=== PATIENT | female | born 1965 | race Caucasian/White ===

== ENCOUNTER → 2017-01-10 | Outpatient (CLI) | payer OTHER ==
--- NOTE | 2017-01-10 15:47 | US ---
EXAMINATION TYPE: US venous doppler duplex UE LT DATE OF EXAM: 01/10/2017 3:38 PM COMPARISON: NONE CLINICAL HISTORY: M79.602 PAIN IN LEFT ARM. Lt arm pain, no known previous DVT SIDE PERFORMED: Left Left Arm: Negative for DVT Deep venous structures demonstrate normal compressibility and augmentation of flow within the left up per extremity. No filling defects identified. IMPRESSION: No evidence for DVT left upper extremity.
== END | disposition home or self-care (01) ==
LOC: RADUSWWP 15:19
PROVIDERS: ATTEND Family Medicine
DX: M79.602 Pain in left arm (principal)

== ENCOUNTER → 2017-06-13 | Outpatient (CLI) | payer OTHER ==
--- NOTE | 2017-06-14 09:43 | MM ---
Reason for exam: screening (asymptomatic). Last mammogram was performed 1 year ago. History: Patient is postmenopausal. Benign left US cyst aspiration ea add of the left breast, December 29, 2007. Benign left US cyst aspiration of the left breast, December 29, 2007. Benign left US cyst aspiration ea add of the left breast, May 06, 2006. Benign left US cyst aspiration of the left breast, May 06, 2006. Benign US left CoreBiopsy of the left breast, May 06, 2006. Took hormonal contraceptives for 1 year beginning at age 21. Physical Findings: A clinical breast exam by your physician is recommended on an annual basis and results should be correlated with mammographic findings. MG Screening Mammo w CAD Bilateral CC and MLO view(s) were taken. Prior study comparison: June 07, 2016, bilateral MG 3d screening mammo w/cad. April 21, 2015, bilateral MG diagnostic mammo w CAD YANET. The breast tissue is heterogeneously dense. This may lower the sensitivity of mammography. Finding: There are typically benign diffuse/scattered and grouped calcifications in both breasts, greater in the left breast. Previous mammotome biopsy in the left breast. There is no discrete abnormality. ASSESSMENT: Benign, BI-RAD 2 RECOMMENDATION: Routine screening mammogram of both breasts in 1 year.
== END | disposition home or self-care (01) ==
LOC: RADMAMWWP 08:38
PROVIDERS: ATTEND Family Medicine
DX: Z12.31 Encounter for screening mammogram for malignant neoplasm of breast (principal)

== ENCOUNTER → 2018-07-03 | Outpatient (CLI) | payer BC ==
--- NOTE | 2018-07-03 14:06 | MM ---
Reason for exam: screening (asymptomatic). Last mammogram was performed 1 year and 1 month ago. History: Patient is postmenopausal. Benign left US cyst aspiration ea add of the left breast, December 29, 2007. Benign left US cyst aspiration of the left breast, December 29, 2007. Benign left US cyst aspiration ea add of the left breast, May 06, 2006. Benign left US cyst aspiration of the left breast, May 06, 2006. Benign US left CoreBiopsy of the left breast, May 06, 2006. Took hormonal contraceptives for 1 year beginning at age 21. Physical Findings: A clinical breast exam by your physician is recommended on an annual basis and results should be correlated with mammographic findings. MG 3D Screening Mammo W/Cad Bilateral CC and MLO view(s) were taken. Prior study comparison: June 13, 2017, bilateral MG screening mammo w CAD. June 07, 2016, bilateral MG 3d screening mammo w/cad. The breast tissue is heterogeneously dense. This may lower the sensitivity of mammography. Stable benign calcifications. There is no discrete abnormality. No significant changes when compared with prior studies. ASSESSMENT: Benign, BI-RAD 2 RECOMMENDATION: Routine screening mammogram of both breasts in 1 year.
== END | disposition home or self-care (01) ==
LOC: RADMAMWWP 07:11
PROVIDERS: ATTEND Family Medicine
DX: Z12.31 Encounter for screening mammogram for malignant neoplasm of breast (principal)
CPT/HCPCS: 77063; 77067

== ENCOUNTER 2019-06-22 08:42 | Day surgery (SDC) | payer BC ==
[2019-06-21 10:43] VITALS: BMI 41.6
[~2019-06-22 08:42] MED LIST: LIDOCAINE 1% 20 ML VIAL (10MG/ML) FOR IV START INTRADERMA PRN
[2019-06-22 09:18] VITALS: TEMP 98.2
[2019-06-22] MEDS: LACTATED RINGERS 1,000 ML IV SCH ×2 (09:18→09:45)
[2019-06-22 09:25] LABS: Glucose,Whole Blood 170 mg/dL (75-99)
[2019-06-22] MEDS ORDERED: PROPOFOL 10 MG/ML 20 ML VIAL IV ONE (09:46)
--- NOTE | 2019-06-22 10:06 | P.PCN ---
Date of Procedure: 06/22/19 Procedure(s) Performed: BRIEF HISTORY: Patient is a 54-year-old pleasant white female scheduled for an elective colonoscopy as a part of screening for colorectal neoplasia. She does have family history of colon cancer diagnosed in her older sister at this age 55. Her last coloscopy was 5 years ago. PROCEDURE PERFORMED: Colonoscopy with biopsy. PREOPERATIVE DIAGNOSIS: Screening for colon cancer/family history of colon cancer. IV sedation per Anesthesia. PROCEDURE: After informed consent was obtained, the patient, was brought into the endoscopy unit. IV sedation was administered by Anesthesia under continuous monitoring. Digital rectal examination was normal. Initially the Olympus CF-160 flexible video colonoscope was then inserted in the rectum, gradually advanced into the cecum without any difficulty. Careful examination was performed as the scope was gradually being withdrawn. Ileocecal valve and the appendiceal orifice were visualized and appeared normal. Prep was excellent. Mucosa of the cecum, appeared normal. In the ascending colon there was a 2-3 mm sessile polyp that was removed by cold biopsy. Rest of the ascending colon, transverse colon, descending colon, sigmoid colon, and rectum appeared normal. Retroflexion was performed in the rectum and no lesions were seen. The patient tolerated the procedure well. IMPRESSION: 2-3 mm sessile ascending colon polyp status post removal by cold biopsy Rest of the colon appeared normal RECOMMENDATIONS: Findings of this examination were discussed with the patient as well as a family. She was advised to follow with the biopsy results and have a repeat screening colonoscopy in 5 years from now.
[2019-06-22 10:34] VITALS: PULSE 72; RESP 16
[2019-06-22 10:58] VITALS: BP 125/67
== END 2019-06-22 10:55 | disposition home or self-care (01) ==
LOC: ORWHC2ENDO 08:42
PROVIDERS: ATTEND Internal Medicine Gastroenterology
DX: Z12.11 Encounter for screening for malignant neoplasm of colon (principal); Z80.0 Family history of malignant neoplasm of digestive organs; D12.2 Benign neoplasm of ascending colon; Z88.2 Allergy status to sulfonamides; Z88.6 Allergy status to analgesic agent; Z91.041 Radiographic dye allergy status; G47.33 Obstructive sleep apnea (adult) (pediatric); Z87.891 Personal history of nicotine dependence; E11.9 Type 2 diabetes mellitus without complications; N20.0 Calculus of kidney; Z79.890 Hormone replacement therapy; Z79.4 Long term (current) use of insulin; Z79.899 Other long term (current) drug therapy
CPT/HCPCS: 88305; 45380; J2704

== ENCOUNTER → 2019-06-26 | Outpatient (CLI) | payer BC ==
--- NOTE | 2019-06-27 14:54 | US ---
EXAMINATION TYPE: US kidneys/renal and bladder DATE OF EXAM: 06/26/2019 COMPARISON: NONE CLINICAL HISTORY: N20.0 calculus of kidney. HX of renal stones. EXAM MEASUREMENTS: Right Kidney: 11.3 x 4.3 x 4.0 cm Left Kidney: 10.7 x 4.8 x 4.4 cm Right Kidney: Multiple echogenic foci seen Left Kidney: Large stone visualized 1.4 cm lower pole. Bladder: wnl Bilateral Jets seen: Yes There is no evidence for hydronephrosis at this point in time. No masses are identified. The urinary bladder is anechoic. Bilateral ureteral jets are seen as reported by the technologist. IMPRESSION: Possible bilateral nephrolithiasis, sizable calcification left kidney is nonobstructive.
== END | disposition home or self-care (01) ==
LOC: RADUSWWP 16:12
PROVIDERS: ATTEND Family Medicine
DX: N20.0 Calculus of kidney (principal); N28.89 Other specified disorders of kidney and ureter
CPT/HCPCS: 76770

== ENCOUNTER → 2019-07-23 | Outpatient (CLI) | payer BC | END | disposition home or self-care (01) | LOC: LABWHC1 08:47 | PROVIDERS: ATTEND Urology | DX: N20.0 Calculus of kidney (principal) | CPT/HCPCS: 82140; 82340; 82507; 82570; 83735; 83945; 83986; 84105; 84133; 84300; 84392; 84560 ==

== ENCOUNTER → 2019-08-09 | Outpatient (CLI) | payer BC ==
--- NOTE | 2019-08-10 11:38 | MM ---
Reason for exam: screening (asymptomatic). Last mammogram was performed 1 year and 1 month ago. History: Patient is postmenopausal. Benign left US cyst aspiration ea add of the left breast, December 29, 2007. Benign left US cyst aspiration of the left breast, December 29, 2007. Benign left US cyst aspiration ea add of the left breast, May 06, 2006. Benign left US cyst aspiration of the left breast, May 06, 2006. Benign US left CoreBiopsy of the left breast, May 06, 2006. Took hormonal contraceptives for 1 year beginning at age 21. Physical Findings: A clinical breast exam by your physician is recommended on an annual basis and results should be correlated with mammographic findings. MG 3D Screening Mammo W/Cad Bilateral CC and MLO view(s) were taken. Prior study comparison: July 03, 2018, bilateral MG 3d screening mammo w/cad. June 13, 2017, bilateral MG screening mammo w CAD. The breast tissue is heterogeneously dense. This may lower the sensitivity of mammography. Finding #1: Architectural distortion in the middle position of the left breast. Finding #2: There are typically benign round, regional calcifications in both breasts. Previous mammotome biopsy in the left breast. ASSESSMENT: Incomplete: need additional imaging evaluation, BI-RAD 0 RECOMMENDATION: Ultrasound of the left breast. [facility] will attempt to contact patient to return for ultrasound.
== END | disposition home or self-care (01) ==
LOC: RADMAMWWP 16:32
PROVIDERS: ATTEND Family Medicine
DX: Z12.31 Encounter for screening mammogram for malignant neoplasm of breast (principal)
CPT/HCPCS: 77063; 77067

== ENCOUNTER → 2019-08-27 | Outpatient (CLI) | payer BC ==
--- NOTE | 2019-08-27 11:52 | USB ---
Reason for exam: additional evaluation requested from abnormal screening. History: Patient is postmenopausal. Benign left US cyst aspiration ea add of the left breast, December 29, 2007. Benign left US cyst aspiration of the left breast, December 29, 2007. Benign left US cyst aspiration ea add of the left breast, May 06, 2006. Benign left US cyst aspiration of the left breast, May 06, 2006. Benign US left CoreBiopsy of the left breast, May 06, 2006. Took hormonal contraceptives for 1 year beginning at age 21. Physical Findings: Nurse did not find any significant physical abnormalities on exam. US Breast LT Left complete breast ultrasound includes all four quadrants, the retroareolar region and axilla. Finding demonstrates a 0.9 x 0.6 x 0.5cm oval, cystic cluster at 12 o'clock, a 0.9 x 0.7 x 0.2cm oval, cystic duct versus cluster at 2 o'clock, a 0.7 x 1.4 x 0.3cm oval, cystic lesion at 2 o'clock, a 0.5 x 0.6 x 0.3cm oval, cystic lesion at 3 o'clock, a 0.4 x 0.5 x 0.2cm oval, cystic lesion at 8 o'clock, a 1.0 x 0.4 x 0.5cm oval, mixed, possibly intraductal lesion at 10 o'clock, biopsy recommended, a 0.6 x 0.9 x 0.4cm complex, cystic lesion at 10 o'clock and multiple lymph nodes at the axilla with the largest measuring 1.5 x 3.7 x 1.9cm. These results were verbally communicated with the patient and result sheet given to the patient on 08/27/19. ASSESSMENT: Suspicious, BI-RAD 4 RECOMMENDATION: Ultrasound core biopsy of the left breast. (10 o'clock) Called Dr. Quintana' office with mammographic findings and has scheduled an appointment for the patient for 10/05/18 at 9:[address] Casas. Biopsy scheduled for 10/08/18 at 12:20. PRELIMINARY REPORT CALLED AND FAXED TO DR. CASAS ON 08/27/19.
== END | disposition home or self-care (01) ==
LOC: RADUSWWP 10:12
PROVIDERS: ATTEND Family Medicine
DX: R92.8 Other abnormal and inconclusive findings on diagnostic imaging of breast (principal)

== ENCOUNTER → 2019-10-05 | Outpatient (CLI) | payer BC ==
[2019-10-05 07:55] VITALS: BP 142/83; PULSE 82; RESP 16; TEMP 98.2
--- NOTE | 2019-10-05 08:18 | P.GSHP ---
History of Present Illness H&P Date: 10/05/19 Chief Complaint: abnormal ultrasound of the left breast Yumiko is a 53-year-old white female who presents for breast evaluation and consultation from Dr. Quintana secondary to ultrasound abnormality in the left breast. [place] [id number]. This revealed no lesions of concern in the right breast. In the left breast #1 architectural distortion in the middle position #2 some calcifications in both breasts which were felt to be benign the recommendation was for ultrasound of the left breast. This was performed on [id number]. This revealed multiple cystic areas as well as a lesion at 10:00 which was a possible intraductal lesion 1 x 0.5 cm in size. Additionally she was noted to have multiple lymph nodes in the axilla. Recommendation was for an ultrasound-guided core biopsy of the lesion in the left breast at the 10 o'clock position. Yusuf ko a left bresat biopsy ultrasound core 2006 benign The patient does not feel any new lumps masses or nodules in her breast. She is not complaining of any pain in her breast at this time. She is not complaining of any nipple discharge or skin changes. She has no history of any trauma or infection of the breast. Caffeine: none smoke: none chocolate: weekly hormones: none Family History: mother: lung sister: colon brother: testicular cancer, pancreatic cancer Hormonal History: menarche: 12 , first born at 20, breast fed: no menopause: hysterectomy at 28 did not take ovaries, gets hot flashes now done for bleeding BCP: 1 year hormones: none Surgery: appendectomy hysterectomy gallbladder Achilles tendon eye surgery (muscle tightness) kidney stone (lithotripsy) breast biopsy heart cath Medical History: HTN diabetic anxiety high cholesterol hyperlipidemia sleep apnea Social History: smoke: none, stopped 30 years ago alcohol: occasional drugs: none - Constitutional Constitutional: Reports sweats - EENT Eyes: denies blurred vision, denies pain Ears: deny: decreased hearing, tinnitus Ears, nose, mouth and throat: Reports headache, Denies sore throat - Breasts Breasts: bilateral: as per HPI - Cardiovascular Cardiovascular: Reports high blood pressure - Respiratory Comment: sleep apnea Respiratory: Denies cough, Denies 7 - Gastrointestinal Gastrointestinal: Denies abdominal pain, Denies diarrhea, Denies nausea, Denies vomiting - Genitourinary (Female) Comment: MRSA in urine felt to be secondary to kidney stones Genitourinary: Reports hematuria, Reports kidney stones - Menstruation Menstruation: Reports post hysterectomy - Musculoskeletal Comment: arthritis Musculoskeletal: Reports myalgias - Integumentary Integumentary: Denies pruritus, Denies rash - Neurological Neurological: Denies numbness, Denies weakness - Psychiatric Psychiatric: Reports anxiety - Endocrine Endocrine: Reports fatigue - Hematologic/Lymphatic Comment: none - Allergic/Immunologic Allergic/Immunologic: Reports seasonal allergies Past Medical History Past Medical History: Diabetes Mellitus, Hyperlipidemia, Hypertension, Sleep Apnea/CPAP/BIPAP, Thyroid Disorder Additional Past Medical History / Comment(s): hx. kidney stones; uses CPAP; History of Any Multi-Drug Resistant Organisms: MRSA Date of last positivie culture/infection: April 2019 MDRO Source:: urine Past Surgical History: Appendectomy, Cholecystectomy, Heart Catheterization, Hysterectomy, Orthopedic Surgery Additional Past Surgical History / Comment(s): colonoscopies; laparoscopy; achilles tendon surg; right eye muscle surgery 2010; Past Anesthesia/Blood Transfusion Reactions: No Reported Reaction Past Psychological History: Anxiety Smoking Status: Former smoker Past Alcohol Use History: Occasional Additional Past Alcohol Use History / Comment(s): quit smoking 1989, smoked for 10 yrs. <ppd Past Drug Use History: None Reported - Past Family History Sister(s) Family Medical History: Cancer Additional Family Medical History / Comment(s): colon cancer; mitral valve prolapse Mother Family Medical History: Cancer Additional Family Medical History / Comment(s): lung cancer; kidney failure; stroke Father Family Medical History: Diabetes Mellitus, Myocardial Infarction (ND) Medications and Allergies Home Medications Medication Instructions Recorded Confirmed Type Bumetanide [Bumex] 0.5 mg PO QAM 06/21/19 10/05/19 History Cetirizine HCl [Zyrtec] 10 mg PO QAM 06/21/19 10/05/19 History DULoxetine HCL [Cymbalta] 60 mg PO QAM 06/21/19 10/05/19 History Ezetimibe [Zetia] 10 mg PO HS 06/21/19 10/05/19 History INSULIN ASPART (NovoLOG) [NovoLOG 10 unit SQ AC-BRKFST 06/21/19 10/05/19 History (formulary)] INSULIN ASPART (NovoLOG) [NovoLOG 14 unit SQ AC-LUNCH 06/21/19 10/05/19 History (formulary)] INSULIN ASPART (NovoLOG) [NovoLOG 14 unit SQ AC-SUPPER 06/21/19 10/05/19 History (formulary)] Insulin Glargine [Lantus] 44 unit SQ DAILY 06/21/19 10/05/19 History Levothyroxine Sodium [Synthroid] 100 mcg PO QAM 06/21/19 10/05/19 History Losartan [Cozaar] 75 mg PO QAM 06/21/19 10/05/19 History Pravastatin Sodium [Pravachol] 40 mg PO HS 06/21/19 10/05/19 History metFORMIN HCL [Glucophage] 1,000 mg PO BID 06/21/19 10/05/19 History sitaGLIPtin [Januvia] 100 mg PO QAM 06/21/19 10/05/19 History Dulaglutide [Trulicity] 1.5 mg SQ WEEKLY 09/24/19 10/05/19 History Insulin Glargine [Lantus] 48 unit SQ HS 09/24/19 10/05/19 History Potassium Citrate [Potassium 10 meq PO QAM 09/24/19 10/05/19 History Citrate ER] Allergies Allergy/AdvReac Type Severity Reaction Status Date / Time Iodinated Contrast Media Allergy Rash/Hives Verified 10/05/19 07:38 Sulfa (Sulfonamide Allergy Rash/Hives Verified 10/05/19 07:38 Antibiotics) sulfamethoxazole Allergy Rash/Hives Verified 10/05/19 07:38 [From Bactrim] trimethoprim [From Bactrim] Allergy Rash/Hives Verified 10/05/19 07:38 naproxen [From Aleve] AdvReac itchy Verified 10/05/19 07:38 swollen hands Surgical - Exam Vital Signs Temp Pulse Resp BP Pulse Ox 98.2 F 82 16 142/83 96 10/05/19 07:42 10/05/19 07:42 10/05/19 07:42 10/05/19 07:42 10/05/19 07:42 BMI 40.7 - General obese - Eyes normal ocular movement - ENT normal pinna, normal nares, no hearing loss - Neck no bruits, trachea midline, no lymphadectomy - Respiratory normal expansion, normal respiratory effort, clear to percussion, clear to auscultation - Cardiovascular Rhythm: regular Heart Sounds: normal: S1, S2 - Abdomen Abdomen: soft, non tender, bowel sounds, no guarding, no rigid, no rebound - Integumentary normal turgor - Neurologic no disoriented, no combative - Musculoskeletal normal gait, normal posture - Psychiatric oriented to time, oriented to person, oriented to place, speech is normal, memory intact breast exam: BRA 40D ptosis grade 3 Inspection: No evidence of any nipple retraction, no skin changes of concern Palpation: Right breast: Multi-positional exam no dominant masses or nodules of concern, fibrocystic changes Right axilla: No adenopathy of concern Left breast: Multi-positional exam no dominant masses or nodules of concern, fibrocystic changes Left axilla: No adenopathy of concern Results mammogram and ultrasound results reviewed Assessment and Plan Assessment: Impression: HTN diabetic anxiety high cholesterol hyperlipidemia sleep apnea BMI 40.7/ obesity Fibrocystic breast changes Ultrasound abnormality left breast Adenopathy on ultrasound not palpable or clinically worrisome in left axilla Patient most likely perimenopausal Plan: 1. Ultrasound-guided core biopsy left breast 2. Causes of fibrocystic breast disease discussed 3. Medical management of medical conditions 4. FSH and LH levels to be drawn to determine menopausal status CC: Dr. Quintana Encounter 25 minutes, > 50% of time in planning and counselling Time with Patient: Less than 30
[2019-10-05 16:32] LABS: Follicle Stimulating Hormone 17.8 mIU/mL; Luteinizing Hormone 7.3 mIU/mL
== END ==
LOC: WWCWWP 07:15
PROVIDERS: ATTEND Surgery
DX: N95.9 Unspecified menopausal and perimenopausal disorder (principal)
CPT/HCPCS: 83001; 83002

== ENCOUNTER → 2019-10-08 | Day surgery (SDC) | payer BC ==
[2019-10-08 11:50] VITALS: RESP 12; TEMP 98.6
[2019-10-08 12:43] VITALS: BP 146/79; PULSE 86
--- NOTE | 2019-10-08 12:54 | USB ---
EXAMINATION TYPE: US biopsy breast VAD LT, MG diagnostic mammo LT wo CAD DATE OF EXAM: 10/08/2019 CLINICAL HISTORY: R92.8, Abnormal mammogram. TECHNIQUE: Ultrasound guided core biopsy of left breast. COMPARISON: Left breast ultrasound dated 08/27/2019 FINDINGS: The procedure of ultrasound guided core biopsy was explained to the patient. Benefits, alternatives, and risks were discussed. An informed consent was then obtained. Preprocedural timeout was performed. The patient was placed in supine positioning for imaging and for the procedure. The overlying skin was prepped and draped in usual sterile fashion. 10 cc of 1% lidocaine was used as anesthetic into the skin and subcutaneous tissue up to a 1.1 cm mass at the 10:00 position in the left breast. Under ultrasound guidance, a 12-gauge vacuum assisted biopsy gun device was used to obtain 4 core samples. Following this, a coil-shaped biopsy marker was left at the site of biopsy. Postprocedure mammogram demonstrates appropriate biopsy marker placement. The patient tolerated the procedure well without any immediate complication. The patient was kept in the radiology department for short stay after the procedure and then discharged home in stable condition. IMPRESSION: Successful, uncomplicated ultrasound guided core biopsy of a 1.1 cm mass at the 10:00 position in the left breast, full pathology results to follow. Pathology Results: Benign LEFT BREAST, ULTRASOUND GUIDED CORE BIOPSY: Focal { } and remote fat necrosis with mild chronic inflammation (see comment). Recommendation Follow up mammogram of the left breast in 6 months. SHREYASD
== END ==
LOC: RADUSWWP 11:15
PROVIDERS: ATTEND Surgery
DX: N60.32 Fibrosclerosis of left breast (principal); N64.1 Fat necrosis of breast; N61.0 Mastitis without abscess
CPT/HCPCS: 88305; 77065; 19083; A4648; J2001

== ENCOUNTER → 2019-10-19 | Outpatient (CLI) | payer BC | END | disposition home or self-care (01) | LOC: LABPAT 14:30 | PROVIDERS: ATTEND Surgery | DX: Z01.818 Encounter for other preprocedural examination (principal) | CPT/HCPCS: 93005 ==

== ENCOUNTER → 2019-10-23 | Day surgery (SDC) | payer BC ==
[2019-10-19 11:43] VITALS: BMI 40.7
[~2019-10-23] MED LIST changes: +ALPRAZolam 0.5 MG TAB PO ONE; +DEXAMETHASONE SOD PHOSPHATE 10 MG/ML 1 ML VIAL IV ONE; +HEPARIN SODIUM,PORCINE 5,000 UNIT/ML 1 ML VIAL SQ ONE; +HYDROmorphone 0.5 MG/0.5 ML SYRINGE IVP PRN; +KETOROLAC 30 MG/ML 1 ML VIAL ONE; +LACTATED RINGERS 1,000 ML IV ONE; +LACTATED RINGERS 1,000 ML IV SCH; +LIDOCAINE 1% 20 ML VIAL (10MG/ML) FOR IV START INTRADERMA ONE; -LIDOCAINE 1% 20 ML VIAL (10MG/ML) FOR IV START INTRADERMA PRN; +LIDOCAINE 1% INJ 10MG/ML (20 ML MDV) ONE; +LIDOCAINE 1% INJ 10MG/ML (20 ML MDV) SQ ONE; +METOPROLOL TARTRATE 5 MG/5 ML VIAL IVP ONE; +MIDAZOLAM 2 MG/2 ML VIAL IV PRN; +MIDAZOLAM 2 MG/2 ML VIAL ONE; +ONDANSETRON 4 MG/2 ML VIAL IVP ONE; +PROPOFOL 10 MG/ML 20 ML VIAL IV ONE; +Pre Op ABX Message 1 EACH MISC MISCELLANE ONE; +SCOPOLAMINE 1.5MG/72HR PATCH TRANSDERM ONE; +SUCCINYLCHOLINE CHLORIDE 100 MG/5 ML SYR IV ONE; +fentaNYL (PF) 50 MCG/ML 2 ML AMP ONE
--- NOTE | 2019-10-23 16:54 | P.OP ---
Date of Procedure: 10/23/19 Preoperative Diagnosis: discordant core Biopsy left breast Postoperative Diagnosis: same Procedure(s) Performed: needle localization excisional biopsy via crescent mastopexy left breast Anesthesia: local Surgeon: Mary Casas Estimated Blood Loss (ml): 10 IV fluids (ml): 400 Pathology: other (breast tissue) Condition: stable Disposition: same day Indications for Procedure: core biopsy discordant Operative Findings: fibrofatty breast tissue Description of Procedure: Yumiko is a 54-year-old white female status post core biopsy of an area of concern in the left breast. Pathology was discordant and it was felt that a needle local excisional biopsy of the area of concern should be performed. The patient was brought to the operating room following needle localization of area of concern in the left breast. The patient was seen in the preoperative area where skin markings were performed. This was felt it could be approached via a crescent mastopexy incision. The superior aspect of the incision was 2 cm above the superior area at 12:00. The markings were placed. The patient was brought to the operating room. Following induction of general anesthesia the left breast was prepped and draped in a sterile fashion. The skin was de- epithelialized in the area of the markings. The area of the breast was entered and the dissection was performed to the shaft of the needle. The needle was grasped using an Allis clamp and surrounding tissue was excised. Following this the specimen was painted for orientation. Radiograph the specimen revealed the area of concern had been removed. The wound was well irrigated. Titanium clips were placed to ayden the cavity. The breast tissue was closed in the deep area of the cavity using 3-0 Vicryl suture. This was done after we were assured that hemostasis was attained using electrocautery, the Harmonic scalpel, and oversewing several vessels. The skin was closed using 3-0 Vicryl suture in the subcutaneous tissue. The subcuticular tissue was closed using 4-0 Monocryl. The patient tolerated the procedure in stable condition. All instrument and sponge counts were correct at the end of the case.
--- NOTE | 2019-10-23 16:56 | P.DS ---
Providers Attending physician: Mary Casas Primary care physician: Dylan Quintana Plan - Discharge Summary Discharge Rx Participant: No New Discharge Prescriptions: No Action INSULIN ASPART (NovoLOG) [NovoLOG (formulary)] 10 unit SQ AC-BRKFST INSULIN ASPART (NovoLOG) [NovoLOG (formulary)] 14 unit SQ AC-LUNCH sitaGLIPtin [Januvia] 100 mg PO QAM metFORMIN HCL [Glucophage] 1,000 mg PO BID Pravastatin Sodium [Pravachol] 40 mg PO HS Losartan [Cozaar] 75 mg PO QAM Levothyroxine Sodium [Synthroid] 100 mcg PO QAM Insulin Glargine [Lantus] 44 unit SQ DAILY Ezetimibe [Zetia] 10 mg PO HS DULoxetine HCL [Cymbalta] 60 mg PO QAM Cetirizine HCl [Zyrtec] 10 mg PO QAM Bumetanide [Bumex] 0.5 mg PO QAM INSULIN ASPART (NovoLOG) [NovoLOG (formulary)] 14 unit SQ AC-SUPPER Dulaglutide [Trulicity] 1.5 mg SQ WEEKLY Potassium Citrate [Potassium Citrate ER] 10 meq PO QAM Insulin Glargine [Lantus] 48 unit SQ HS Ibuprofen 400 mg PO DAILY PRN PRN Reason: Pain Discharge Medication List Bumetanide [Bumex] 0.5 mg PO QAM 06/21/19 [History] Cetirizine HCl [Zyrtec] 10 mg PO QAM 06/21/19 [History] DULoxetine HCL [Cymbalta] 60 mg PO QAM 06/21/19 [History] Ezetimibe [Zetia] 10 mg PO HS 06/21/19 [History] INSULIN ASPART (NovoLOG) [NovoLOG (formulary)] 10 unit SQ AC-BRKFST 06/21/19 [History] INSULIN ASPART (NovoLOG) [NovoLOG (formulary)] 14 unit SQ AC-LUNCH 06/21/19 [History] INSULIN ASPART (NovoLOG) [NovoLOG (formulary)] 14 unit SQ AC-SUPPER 06/21/19 [History] Insulin Glargine [Lantus] 44 unit SQ DAILY 06/21/19 [History] Levothyroxine Sodium [Synthroid] 100 mcg PO QAM 06/21/19 [History] Losartan [Cozaar] 75 mg PO QAM 06/21/19 [History] Pravastatin Sodium [Pravachol] 40 mg PO HS 06/21/19 [History] metFORMIN HCL [Glucophage] 1,000 mg PO BID 06/21/19 [History] sitaGLIPtin [Januvia] 100 mg PO QAM 06/21/19 [History] Dulaglutide [Trulicity] 1.5 mg SQ WEEKLY 09/24/19 [History] Insulin Glargine [Lantus] 48 unit SQ HS 09/24/19 [History] Potassium Citrate [Potassium Citrate ER] 10 meq PO QAM 09/24/19 [History] Ibuprofen 400 mg PO DAILY PRN 10/19/19 [History] Follow up Appointment(s)/Referral(s): Mary Casas MD [STAFF PHYSICIAN] - 1 Week Activity/Diet/Wound Care/Special Instructions: do not drive for 24 hours after discharge wear bra at all times unless showering may shower after 48 hours Discharge Disposition: HOME SELF-CARE
--- NOTE | 2019-10-23 17:01 | MM ---
EXAMINATION TYPE: MG pre op needle loc LT, MG surgical specimen LT DATE OF EXAM: 10/23/2019 COMPARISON: 10/08/2019, 08/27/2019, 08/09/2019 CLINICAL HISTORY: 52-year-old female status post ultrasound guided left breast biopsy with discordant results, possible intraductal lesion for which the patient is being referred for needle localization. TECHNIQUE: Needle localization with wire placement and surgical excision of area of concern in the 9:00 left breast. FINDINGS: The procedure of needle localization with wire placement and than surgical excision was explained to the patient. Benefits, alternatives, and risks were discussed. An informed consent was then obtained. The shortest pathway for procedure was chosen. Shortest pathway was a medial approach. The overlying skin was prepped and draped in usual sterile fashion. Lidocaine was used as anesthetic into the skin and subcutaneous tissue up to the level of area of concern. A 7 cm needle was used. It was placed via a medial approach under mammographic guidance. Subsequent 90 degrees mammogram show the needle to be in satisfactory position relative to the targeted area. At this point, wire was placed and the needle was withdrawn. The wire was fixed to patient's skin. Images were marked for surgeon. The patient tolerated the procedure well without any immediate complication. The patient was kept in the radiology department for short stay after the procedure and then taken to surgery for surgical excision. Targeted clip and wire are identified in specimen mammogram. The patient was kept in hospital for short stay after the procedure and then discharged home in stable condition. IMPRESSION: Successful, uncomplicated needle localization with wire placement and surgical excision of previous site of ultrasound-guided biopsy in the 9:00 left breast demonstrating discordant results given suspicion of an intraductal lesion. Full pathology results to follow. Pathology Results: High Risk LEFT BREAST, NEEDLE LOCALIZATION EXCISION: Extensive lobular neoplasia (ALH/LCIS). Background fibrocystic changes including focal radial scar and columnar cell change. Ruptured duct with adjacent fat necrosis and scar. See note. Recommendation Surgical consult of the left breast. Continued surgical management/surviellence for radial scar, ALH/LCIS. MTDD
[2019-10-23 17:21] VITALS: TEMP 98
[2019-10-23 17:24] LABS: Glucose,Whole Blood 172 mg/dL (75-99)
[2019-10-23 18:29] VITALS: BP 122/75; PULSE 85; RESP 16
[2019-10-24 11:45] LABS: Glucose,Whole Blood 158 mg/dL (75-99)
== END | disposition home or self-care (01) ==
LOC: OR 11:23
PROVIDERS: ATTEND Surgery
DX: C50.912 Malignant neoplasm of unspecified site of left female breast (principal); I10 Essential (primary) hypertension; E11.9 Type 2 diabetes mellitus without complications; E66.01 Morbid (severe) obesity due to excess calories; F41.9 Anxiety disorder, unspecified; F32.9 Major depressive disorder, single episode, unspecified; G47.33 Obstructive sleep apnea (adult) (pediatric); E07.9 Disorder of thyroid, unspecified; E78.5 Hyperlipidemia, unspecified; Z86.14 Personal history of Methicillin resistant Staphylococcus aureus infection; Z79.4 Long term (current) use of insulin; Z79.890 Hormone replacement therapy; Z79.899 Other long term (current) drug therapy; Z88.5 Allergy status to narcotic agent; Z91.013 Allergy to seafood; Z88.1 Allergy status to other antibiotic agents; Z88.2 Allergy status to sulfonamides; Z88.8 Allergy status to other drugs, medicaments and biological substances; Z88.6 Allergy status to analgesic agent; Z91.041 Radiographic dye allergy status; Z68.41 Body mass index [BMI] 40.0-44.9, adult; Z86.711 Personal history of pulmonary embolism
CPT/HCPCS: 88342; 88307; 76098; 19281; 19125; J2250; J1644; J1100; J2405; J2001; J3010; J1885; J0330; J2704

== ENCOUNTER → 2020-01-07 | Outpatient (CLI) | payer BC | END | disposition home or self-care (01) | LOC: RADMRIMAIN 07:55 | PROVIDERS: ATTEND Internal Medicine Hematology & Oncology | DX: Z53.9 Procedure and treatment not carried out, unspecified reason (principal) ==

== ENCOUNTER → 2020-02-29 | Outpatient (CLI) | payer BC ==
[2020-02-29 09:16] VITALS: BP 141/79; PULSE 80; RESP 18; TEMP 98.3
--- NOTE | 2020-02-29 09:55 | P.PN ---
Subjective Progress Note Date: 02/29/20 Principal diagnosis: Asymmetry of the breast secondary to partial mastectomy dx of lobular carcinoma in situ Yumiko is a 54-year-old white female who had a bilateral screening mammogram performed in August 2019. This revealed no lesions of concern in the right breast. In the left breast there was architectural distortion in the middle position as well as some calcifications in both breasts which were felt to be benign. She underwent an ultrasound of the left breast. This was performed on 1223 19. This revealed multiple cystic areas as well a lesion at 10:00 which was a possible intraductal lesion. She was noted to have multiple lymph nodes in the axilla and recommendation was for an ultrasound- guided core biopsy of the lesion of the left breast at 10:00. Ultrasound core biopsy was benign. The lesion however was felt to be discordant after review with Dr. Pool from radiology. The patient was therefore recommended to undergo a needle local excisional resection, /partial mastectomy via crescent mastopexy of this area. This was performed and [id number]. This revealed extensive lobular neoplasia, Atypical lobular hyperplasia/lobular carcinoma in situ. No invasive malignancy was identified. The patient had a partial mastectomy for discordant lesion via a crescent mastopexy of the left breast. This has resulted in asymmetry of the nipple location for the right breast. Secondary to the atypical lobular hyperplasia/LCIS the patient was seen by medical oncology. She was started on Aromasin to reduce risk of development of breast cancer. Additionally she had an MRI done of both breasts on 01-17-20 which was benign, showing only a seroma in the left breast. Family history: Mother: Lung cancer Sister: Colon cancer Brother: Testicular cancer, pancreatic cancer Hormonal history: Menarche: 12 , first born at 20, press-fit: Negative Menopause: Hysterectomy 28 did not removal disease, gets hot flashes now, the hysterectomy was done for bleeding Postoperative pros: 1 year Hormones: Negative Surgery: Appendectomy Hysterectomy Cholecystectomy Achilles tendon I surgery muscle tightness Kidney stone Breast biopsy Heart cath Left breast partial mastectomy via mastopexy incision resulting in asymmetry of the breast Medical history Hypertension Diabetic Anxiety High cholesterol Hyperlipidemia Sleep apnea Social history: Smoking: Negative Alcohol: Occasional Drugs: Negative Review of systems: Constitutional: Night sweats at times, surely worse with the Aromasin HEENT: Negative Breasts: As per HPI Cardiovascular: Hypertension Respiratory: Sleep apnea GI: Negative : MRSA in urine felt to be secondary to kidney stones : Hematuria/kidney stones Menstruation: Reports hysterectomy Musculoskeletal: Arthritis in hips and knees Integument: Negative Neurologic: Negative Psychiatric: Anxiety Objective - Vital Signs Vital signs: Vital Signs Temp 98.3 F 02/29/20 09:13 Pulse 80 02/29/20 09:13 Resp 18 02/29/20 09:13 BP 141/79 02/29/20 09:13 Pulse Ox 98 02/29/20 09:13 Intake & Output 02/28/20 02/29/20 02/29/20 18:59 06:59 18:59 Weight 104.326 kg - Exam BMI 40.7 - Constitutional General appearance: Present: obese - EENT Eyes: Present: EOMI ENT: Present: hearing grossly normal - Neck Neck: Present: normal ROM - Respiratory Respiratory: bilateral: CTA - Cardiovascular Rhythm: regular Heart sounds: normal: S1, S2 - Gastrointestinal General gastrointestinal: Present: normal bowel sounds, soft - Integumentary Integumentary: Present: normal turgor - Musculoskeletal Musculoskeletal: Present: gait normal - Psychiatric Psychiatric: Present: A&O x's 3, appropriate affect, intact judgment & insight - Additional findings Additional findings: Breast examination: BRA: 48 DT Inspection: Right breast ptosis grade 3 Left breast ptosis grade 2/3 the left nipple areolar complexes higher than that on the right causing some distress with the patient Palpation: Right breast: Multi-positional exam no dominant masses or nodules of concern, fibrocystic changes Right axilla: No adenopathy of concern Left breast: Well-healed scar from prior mastopexy/partial mastectomy, no dominant masses or nodules of concern Left axilla: No adenopathy of concern Assessment and Plan Assessment: Impression: 1. Lobular carcinoma in situ/patient on Aromasin 2. Recent MRI of the breast no evidence of malignancy 3. Asymmetry of the nipple areolar complex causing distress Plan: 1. Right breast mastopexy 2. Continue Aromasin 3. Preoperative clearance from Dr. Quintana CC: Dr. Quintana encounter 30 minutes, > 50% of time in planning and counselling
== END | disposition home or self-care (01) ==
LOC: WWCWWP 09:01
PROVIDERS: ATTEND Surgery
DX: Z53.9 Procedure and treatment not carried out, unspecified reason (principal)

== ENCOUNTER 2020-03-11 07:20 | Day surgery (SDC) | payer BC ==
[2020-03-05 13:39] VITALS: BMI 40.7
[~2020-03-11 07:20] MED LIST changes: -ALPRAZolam 0.5 MG TAB PO ONE; -KETOROLAC 30 MG/ML 1 ML VIAL ONE; -LACTATED RINGERS 1,000 ML IV ONE; +LIDOCAINE 1% (10MG/ML) FOR IV START INTRADERMA PRN; -LIDOCAINE 1% 20 ML VIAL (10MG/ML) FOR IV START INTRADERMA ONE; -LIDOCAINE 1% INJ 10MG/ML (20 ML MDV) ONE; -LIDOCAINE 1% INJ 10MG/ML (20 ML MDV) SQ ONE; -METOPROLOL TARTRATE 5 MG/5 ML VIAL IVP ONE; -MIDAZOLAM 2 MG/2 ML VIAL ONE; -PROPOFOL 10 MG/ML 20 ML VIAL IV ONE; -SCOPOLAMINE 1.5MG/72HR PATCH TRANSDERM ONE; -SUCCINYLCHOLINE CHLORIDE 100 MG/5 ML SYR IV ONE; +fentaNYL (PF) 50 MCG/ML 2 ML AMP IV PRN; -fentaNYL (PF) 50 MCG/ML 2 ML AMP ONE
[2020-03-11 08:11] LABS: Glucose,Whole Blood 196 mg/dL (75-99)
[2020-03-11] MEDS ORDERED: ONDANSETRON 4 MG/2 ML VIAL ONE (08:14)
[2020-03-11] MEDS ORDERED: HEPARIN SODIUM,PORCINE 5,000 UNIT/ML 1 ML VIAL ONE (08:14)
[2020-03-11] MEDS ORDERED: fentaNYL (PF) 50 MCG/ML 2 ML AMP ONE (08:25)
[2020-03-11] MEDS ORDERED: MIDAZOLAM 2 MG/2 ML VIAL ONE (08:25)
[2020-03-11] MEDS ORDERED: LIDOCAINE 1% INJ 10MG/ML (20 ML MDV) ONE (08:25)
[2020-03-11] MEDS ORDERED: PROPOFOL 10 MG/ML 20 ML VIAL IV ONE (08:25)
[2020-03-11] MEDS ORDERED: SUCCINYLCHOLINE CHLORIDE 100 MG/5 ML SYR IV ONE (08:25)
[2020-03-11] MEDS ORDERED: LIDOCAINE 1% INJ 10MG/ML (20 ML MDV) SQ ONE ×2 (09:13)
--- NOTE | 2020-03-11 09:47 | P.OP ---
Date of Procedure: 03/11/20 Preoperative Diagnosis: asymmetric nipple areolar position secondary to prior left breast surgery, left nipple areolar complex higher than the right Postoperative Diagnosis: Same Procedure(s) Performed: Right breast crescent mastopexy performed for a symmetric nipple areolar location Anesthesia: NADERA Surgeon: Mary Casas Estimated Blood Loss (ml): 3 IV fluids (ml): 800 Pathology: other (Right breast skin) Condition: stable Disposition: same day Indications for Procedure: Asymmetry of the nipple areolar location secondary to prior left breast procedure Operative Findings: Ptotic skin Description of Procedure: Yumiko is a 54 year old white female status post a left breast localization and excisional partial mastectomy for a radiographic lesion noted in the left breast. Core biopsy liver bed which is felt to be discordant. Excision was performed via a crescent mastopexy incision and this revealed extensive atypical lobular hyperplasia/lobular carcinoma in situ. Secondary to the procedure the nipple areolar complex on the left is higher than that on the right. This was of concern to the patient causing some anxiety and therefore the patient wished a symmetry procedure to be performed. Patient was given the option of seeing a plastic surgeon and declined. Risks and benefits of procedure were discussed with the patient including bleeding, infection, and reaction to the anesthetic. Additionally she was told that the areas would not be completely symmetric be closer and symmetry. She wished to proceed. In the preoperative area skin markings were performed. The meridian of each breast was identified. The distance from the sternal notch to the aerolar apex on the left on the meridian line was measured at 25 centimeters and measured to the same distance on the right. Prior to the procedure the ptosis on the left was approximately 2 and on the right it was a 3. The crescent to be excised was marked on the right. The crescent apex was approximately 2-1/2 cm above the areolar margin. The circumaerolar distance of the periareolar incision on the left was measured at 12 cm. This was matched on the right. The patient was brought to the operating room. Following induction of anesthesia both breasts were prepped and draped in a sterile fashion. The skin of the crescent on the right was de-epithelialized. An incision was then made i nto the breast tissue. The edges of the de-epithelialized crescent were reapproximated using 3-0 Vicryl suture. This was followed by a 4-0 Monocryl subcutaneous suture. A nylon skin suture was placed. 10 mL of 1% lidocaine were placed into the incision. Following this the patient was placed in the sitting up position. There appeared to be good symmetry of the nipples and the superior margins of the areola. The patient tolerated the procedure in stable condition. All instrument and sponge counts were correct at the end of the case.
--- NOTE | 2020-03-11 09:50 | P.DS ---
Providers Attending physician: Mary Casas Primary care physician: Dylan Quintana Plan - Discharge Summary Discharge Rx Participant: No New Discharge Prescriptions: No Action INSULIN ASPART (NovoLOG) [NovoLOG (formulary)] 10 unit SQ AC-BRKFST INSULIN ASPART (NovoLOG) [NovoLOG (formulary)] 14 unit SQ AC-LUNCH sitaGLIPtin [Januvia] 100 mg PO QAM metFORMIN HCL [Glucophage] 1,000 mg PO BID Pravastatin Sodium [Pravachol] 40 mg PO HS Losartan [Cozaar] 75 mg PO QAM Levothyroxine Sodium [Synthroid] 100 mcg PO QAM Insulin Glargine [Lantus] 46 unit SQ DAILY Ezetimibe [Zetia] 10 mg PO HS DULoxetine HCL [Cymbalta] 60 mg PO QAM Cetirizine HCl [Zyrtec] 10 mg PO QAM Bumetanide [Bumex] 0.5 mg PO QAM INSULIN ASPART (NovoLOG) [NovoLOG (formulary)] 14 unit SQ AC-SUPPER Dulaglutide [Trulicity] 1.5 mg SQ WEEKLY Potassium Citrate [Potassium Citrate ER] 10 meq PO QAM Insulin Glargine [Lantus] 50 unit SQ HS Ibuprofen 400 mg PO DAILY PRN PRN Reason: Pain Exemestane [Aromasin] 25 mg PO DAILY Discharge Medication List Bumetanide [Bumex] 0.5 mg PO QAM 06/21/19 [History] Cetirizine HCl [Zyrtec] 10 mg PO QAM 06/21/19 [History] DULoxetine HCL [Cymbalta] 60 mg PO QAM 06/21/19 [History] Ezetimibe [Zetia] 10 mg PO HS 06/21/19 [History] INSULIN ASPART (NovoLOG) [NovoLOG (formulary)] 10 unit SQ AC-BRKFST 06/21/19 [History] INSULIN ASPART (NovoLOG) [NovoLOG (formulary)] 14 unit SQ AC-LUNCH 06/21/19 [History] INSULIN ASPART (NovoLOG) [NovoLOG (formulary)] 14 unit SQ AC-SUPPER 06/21/19 [History] Insulin Glargine [Lantus] 46 unit SQ DAILY 06/21/19 [History] Levothyroxine Sodium [Synthroid] 100 mcg PO QAM 06/21/19 [History] Losartan [Cozaar] 75 mg PO QAM 06/21/19 [History] Pravastatin Sodium [Pravachol] 40 mg PO HS 06/21/19 [History] metFORMIN HCL [Glucophage] 1,000 mg PO BID 06/21/19 [History] sitaGLIPtin [Januvia] 100 mg PO QAM 06/21/19 [History] Dulaglutide [Trulicity] 1.5 mg SQ WEEKLY 09/24/19 [History] Insulin Glargine [Lantus] 50 unit SQ HS 09/24/19 [History] Potassium Citrate [Potassium Citrate ER] 10 meq PO QAM 09/24/19 [History] Ibuprofen 400 mg PO DAILY PRN 10/19/19 [History] Exemestane [Aromasin] 25 mg PO DAILY 02/29/20 [History] Follow up Appointment(s)/Referral(s): Mary Casas MD [STAFF PHYSICIAN] - 1 Week Activity/Diet/Wound Care/Special Instructions: do not drive for 24 hours after discharge may shower after 48 hours wear bra at all times Discharge Disposition: HOME SELF-CARE
[2020-03-11 09:54] VITALS: TEMP 97.1
[2020-03-11 10:33] LABS: Glucose,Whole Blood 202 mg/dL (75-99)
[2020-03-11] MEDS ORDERED: INSULIN ASPART (NovoLOG) 100 UNIT/ML VIAL SQ ONE (10:34)
[2020-03-11] MEDS ORDERED: LACTATED RINGERS 1,000 ML IV ONE (10:37)
[2020-03-11 11:02] LABS: Glucose,Whole Blood 199 mg/dL (75-99)
[2020-03-11 11:17] VITALS: RESP 18
[2020-03-11 11:23] VITALS: PULSE 68
[2020-03-11 11:24] VITALS: BP 146/77
== END 2020-03-11 11:41 | disposition home or self-care (01) ==
LOC: OR 07:20
PROVIDERS: ATTEND Surgery
DX: N65.1 Disproportion of reconstructed breast (principal); I10 Essential (primary) hypertension; F41.9 Anxiety disorder, unspecified; E78.00 Pure hypercholesterolemia, unspecified; E78.5 Hyperlipidemia, unspecified; G47.33 Obstructive sleep apnea (adult) (pediatric); N60.11 Diffuse cystic mastopathy of right breast; F32.9 Major depressive disorder, single episode, unspecified; E03.9 Hypothyroidism, unspecified; L71.9 Rosacea, unspecified; M17.12 Unilateral primary osteoarthritis, left knee; G47.30 Sleep apnea, unspecified; M79.7 Fibromyalgia; M22.42 Chondromalacia patellae, left knee; S83.012A Lateral subluxation of left patella, initial encounter; E11.649 Type 2 diabetes mellitus with hypoglycemia without coma; E66.9 Obesity, unspecified; Z68.41 Body mass index [BMI] 40.0-44.9, adult; Z86.14 Personal history of Methicillin resistant Staphylococcus aureus infection; Z91.041 Radiographic dye allergy status; Z88.2 Allergy status to sulfonamides; Z88.1 Allergy status to other antibiotic agents; Z85.3 Personal history of malignant neoplasm of breast; Z78.0 Asymptomatic menopausal state; Z90.710 Acquired absence of both cervix and uterus; Z90.49 Acquired absence of other specified parts of digestive tract; Z98.890 Other specified postprocedural states; Z87.442 Personal history of urinary calculi; Z90.12 Acquired absence of left breast and nipple; Z88.5 Allergy status to narcotic agent; Z91.012 Allergy to eggs; Z91.013 Allergy to seafood; Z88.8 Allergy status to other drugs, medicaments and biological substances; Z88.6 Allergy status to analgesic agent; Z79.1 Long term (current) use of non-steroidal anti-inflammatories (NSAID); Z79.811 Long term (current) use of aromatase inhibitors; Z79.899 Other long term (current) drug therapy; Z79.4 Long term (current) use of insulin; Z79.890 Hormone replacement therapy; Z87.891 Personal history of nicotine dependence; Z99.89 Dependence on other enabling machines and devices; Z80.1 Family history of malignant neoplasm of trachea, bronchus and lung; Z80.0 Family history of malignant neoplasm of digestive organs; Z80.43 Family history of malignant neoplasm of testis; Z83.3 Family history of diabetes mellitus; Z82.49 Family history of ischemic heart disease and other diseases of the circulatory system; X58.XXXA Exposure to other specified factors, initial encounter
CPT/HCPCS: 19316; J2250; J1644; J1100; J2405; J2001; J3010; J0330; J2704; 88305

== ENCOUNTER → 2020-04-07 | Outpatient (CLI) | payer BC ==
--- NOTE | 2020-04-07 12:26 | BD ---
EXAMINATION TYPE: Axial Bone Density DATE OF EXAM: 04/07/2020 COMPARISON: NONE CLINICAL HISTORY: Postmenopausal female Height: 5FT 3 1/2 IN Weight: 228 FRAX RISK QUESTIONS: Alcohol (3 or more units per day): NO Family History (Parent hip fracture): NO Glucocorticoids (More than 3mos): NO (Ex: prednisone, prednisolone, methylprednisolone, dexamethasone, and hydrocortisone). History of Fracture in Adulthood: NO Secondary Osteoporosis: 1. Type 1 Diabetes: NO 2. Hyperthyroidism: NO 3. Menopause before 45: NO 4. Malnutrition: NO 5. Chronic liver disease: NO Rheumatoid Arthritis: NO Current Tobacco Use: NO RISK FACTORS HISTORY OF: Family History of Osteoporosis: NO Active: YES Postmenopausal woman: PART HYST AGE 27-28 SYMPTOMS WITH IN LAST 5 YEARS MEDICATIONS: Thyroid Medications: YES Which medication: SYNTHROID How Long: APPROX 10 YEARS Additional Medications: HORMONE MANAN, METFORMIN, SYNTHROID,JENUVIA, LANTUS, NOVALOG, POTASSIUM, H2 O MEDS, LOSARTAN, PRAVASTATIN, ZEITIA, CYMBALTA, TRULICITY Additional History: HIGH RISK BREAST LESION EXAM MEASUREMENTS: Bone mineral densitometry was performed using the [employer] System. Bone mineral density as measured about the Lumbar spine is: ----- L1-L4(G/cm2): 1.281 T Score Values are as follows: ----- L2: 1.3 ----- L3: 1.4 ----- L4: -0.3 ----- L1-L4: 0.8 BASELINE Bone mineral density about the R hip (g/cm2): 0.977 Bone mineral density about the L hip (g/cm2): 0.951 T Score values are as follows: -----R Neck: -0.4 -----L Neck: -0.6 -----R Total: 1.0 -----L Total: 1.4 BASELINE IMPRESSION: Normal (Values between +1 and -1 indicate normal bone mass). Consider repeating this study in 5 year s or sooner if there is some new clinical indication. NOTE: T-SCORE=SD OF THE YOUNG ADULT MEAN.
== END | disposition home or self-care (01) ==
LOC: RADBDWWP 08:35
PROVIDERS: ATTEND Internal Medicine Hematology & Oncology
DX: M81.0 Age-related osteoporosis without current pathological fracture (principal); C50.912 Malignant neoplasm of unspecified site of left female breast; N95.1 Menopausal and female climacteric states; Z79.890 Hormone replacement therapy; Z88.6 Allergy status to analgesic agent; Z88.2 Allergy status to sulfonamides; Z91.048 Other nonmedicinal substance allergy status
CPT/HCPCS: 77080

== ENCOUNTER → 2020-10-21 | Outpatient (CLI) | payer BC ==
--- NOTE | 2020-10-21 13:46 | MM ---
Reason for exam: additional evaluation requested from prior study. Last mammogram was performed 1 year ago. History: Patient is postmenopausal and has history of high-risk lesion on a previous biopsy at age 54. High risk MG pre op needle loc LT of the left breast, October 23, 2019. Benign US biopsy breast VAD LT of the left breast, October 08, 2019. Benign left US cyst aspiration ea add of the left breast, December 29, 2007. Benign left US cyst aspiration of the left breast, December 29, 2007. Benign left US cyst aspiration ea add of the left breast, May 06, 2006. Benign left US cyst aspiration of the left breast, May 06, 2006. Benign US left CoreBiopsy of the left breast, May 06, 2006. Took hormonal contraceptives for 1 year beginning at age 21. Took other hormone for 1 year. Physical Findings: Nurse did not find any significant physical abnormalities on exam. MG 3D Diag Mammo W/Cad YANET Bilateral CC and MLO view(s) were taken. XCCL view(s) were taken of the left breast. Prior study comparison: October 08, 2019, left breast MG diagnostic mammo LT wo CAD. August 09, 2019, bilateral MG 3d screening mammo w/cad. The breast tissue is heterogeneously dense. This may lower the sensitivity of mammography. No significant new findings when compared with previous films. These results were verbally communicated with the patient and result sheet given to the patient on 10/21/20. ASSESSMENT: Benign, BI-RAD 2 RECOMMENDATION: Routine screening mammogram of both breasts in 1 year.
== END | disposition home or self-care (01) ==
LOC: RADMAMWWP 12:51
PROVIDERS: ATTEND Surgery
DX: Z08 Encounter for follow-up examination after completed treatment for malignant neoplasm (principal); Z85.3 Personal history of malignant neoplasm of breast
CPT/HCPCS: 77062; 77066

== ENCOUNTER → 2020-10-24 | Outpatient (CLI) | payer BC ==
[2020-10-24 16:00] VITALS: BP 144/83; PULSE 91; RESP 18; TEMP 98.2
--- NOTE | 2020-10-24 16:28 | P.PN ---
Subjective Progress Note Date: 10/24/20 Principal diagnosis: left breast LCIS Asymmetry of the breast secondary to partial mastectomy dx of lobular carcinoma in situ Yumiko is a 55-year-old white female who had a bilateral screening mammogram performed in August 2019. This revealed no lesions of concern in the right breast. In the left breast there was architectural distortion in the middle position as well as some calcifications in both breasts which were felt to be benign. She underwent an ultrasound of the left breast. This was performed on 1222. This revealed multiple cystic areas as well a lesion at 10:00 which was a possible intraductal lesion. She was noted to have multiple lymph nodes in the axilla and recommendation was for an ultrasound- guided core biopsy of the lesion of the left breast at 10:00. Ultrasound core biopsy was benign. The lesion however was felt to be discordant after review with Dr. Pool from radiology. The patient was therefore recommended to undergo a needle local excisional resection, /partial mastectomy via crescent mastopexy of this area. This was performed and . This revealed extensive lobular neoplasia, Atypical lobular hyperplasia/lobular carcinoma in situ. No invasive malignancy was identified. The patient had a partial mastectomy for discordant lesion via a crescent mastopexy of the left breast. This has resulted in asymmetry of the nipple location for the right breast. Secondary to the atypical lobular hyperplasia/LCIS the patient was seen by medical oncology. She was started on Aromasin to reduce risk of development of breast cancer. Additionally she had an MRI done of both breasts on 01-17-20 which was benign, showing only a seroma in the left breast. She underwent a crescent mastopexy of the right breast in March 2020. The patient at this time has no lumps masses or nodules for which she is concerned. She underwent a bilateral mammogram on this was felt to be benign BIRADS 2 and repeat bilateral mammogram in 1 year was recommended. Family history: Mother: Lung cancer Sister: Colon cancer Brother: Testicular cancer, pancreatic cancer Hormonal history: Menarche: 12 , first born at 20, press-fit: Negative Menopause: Hysterectomy 28 did not removal disease, gets hot flashes now, the hy sterectomy was done for bleeding Postoperative pros: 1 year Hormones: Negative Surgery: Appendectomy Hysterectomy Cholecystectomy Achilles tendon I surgery muscle tightness Kidney stone Breast biopsy Heart cath Left breast partial mastectomy via mastopexy incision resulting in asymmetry of the breast symmetry procedure of hte right breast Medical history Hypertension Diabetic Anxiety High cholesterol Hyperlipidemia Sleep apnea Social history: Smoking: Negative Alcohol: Occasional Drugs: Negative Review of systems: Constitutional: Night sweats at times, surely worse with the Aromasin HEENT: Negative Breasts: As per HPI Cardiovascular: Hypertension Respiratory: Sleep apnea GI: Negative : MRSA in urine felt to be secondary to kidney stones : Hematuria/kidney stones Menstruation: Reports hysterectomy Musculoskeletal: Arthritis in hips and knees Integument: Negative Neurologic: Negative Psychiatric: Anxiety Objective - Vital Signs Vital signs: Vital Signs Temp 98.2 F 10/24/20 15:58 Pulse 91 10/24/20 15:58 Resp 18 10/24/20 15:58 BP 144/83 10/24/20 15:58 Pulse Ox 99 10/24/20 15:58 Intake & Output 10/23/20 10/24/20 10/24/20 18:59 06:59 18:59 Weight 104.326 kg - Exam BMI 40.7 - Constitutional General appearance: Present: obese - EENT Eyes: Present: EOMI ENT: Present: hearing grossly normal - Neck Neck: Present: normal ROM - Respiratory Respiratory: bilateral: CTA - Cardiovascular Rhythm: regular Heart sounds: normal: S1, S2 - Gastrointestinal General gastrointestinal: Present: normal bowel sounds, soft - Integumentary Integumentary: Present: normal turgor - Musculoskeletal Musculoskeletal: Present: gait normal - Psychiatric Psychiatric: Present: A&O x's 3, appropriate affect, intact judgment & insight - Additional findings Additional findings: Breast: BRA: 46D inspection: grade 3 ptosis bilateral, symmetry nipple complexes of the breast patient pleased Palpation: Right breast: Multiple positional exam fibrocystic changes, no dominant masses or nodules of concern Right axilla: No adenopathy of concern Left breast: Multi-positional exam fibrocystic changes no dominant masses or nodules of concern Left axilla: No adenopathy of concern Assessment and Plan Assessment: Impression: Hypertension Diabetic Anxiety High cholesterol Hyperlipidemia Sleep apnea History of LCIS nothing on examination which would warrant interventional biopsy Bilateral mammogram BIRADS 2 in October 2020. Bilateral mammogram in 1 year Plan: 1. Medical management of medical conditions 2. Bilateral mammogram in 1 year with physician exam at that time 3. Continue Aromasin 4. Follow-up with Dr. Mccarthy CC: /dr. Mariano Hector 15 minutes, time spent in reviewing medical records, physical examination, and counseling.
== END | disposition home or self-care (01) ==
LOC: WWCWWP 15:35
PROVIDERS: ATTEND Surgery
DX: D05.02 Lobular carcinoma in situ of left breast (principal); I10 Essential (primary) hypertension; E11.9 Type 2 diabetes mellitus without complications; F41.9 Anxiety disorder, unspecified; E78.00 Pure hypercholesterolemia, unspecified; E78.5 Hyperlipidemia, unspecified; G47.30 Sleep apnea, unspecified

== ENCOUNTER → 2021-04-15 | Outpatient (CLI) | payer BC ==
[2021-04-15 13:21] LABS: INR 0.9 (<1.2); Partial Thromboplastin Time 22.5 sec (22.0-30.0); Prothrombin Time 10.1 sec (9.0-12.0)
[2021-04-15 13:23] LABS: HCT 41.4 % (34.0-46.0); HGB 13.7 gm/dL (11.4-16.0); MCH 29.3 pg (25.0-35.0); MCHC 33.2 g/dL (31.0-37.0); MCV 88.4 fL (80.0-100.0); Mean Platelet Volume 7.3; Platelet Count 272 k/uL (150-450); RBC 4.68 m/uL (3.80-5.40); RDW 14.5 % (11.5-15.5); WBC 8.1 k/uL (3.8-10.6)
[2021-04-15 13:24] LABS: African American GFR (CKD) >90 (>60 ml/min/1.73 sqM); Anion Gap 8 mmol/L; Blood Urea Nitrogen 13 mg/dL (7-17); Calcium 10.5 mg/dL (8.4-10.2); Carbon Dioxide 29 mmol/L (22-30); Chloride 102 mmol/L (98-107); Glucose 101 mg/dL (74-99); Non-African American GFR(CKD) 83 (>60 ml/min/1.73 sqM); Potassium 4.5 mmol/L (3.5-5.1); Sodium 139 mmol/L (137-145)
[2021-04-15 13:26] LABS: Appearance,Urine Cloudy (Clear); Bacteria,Urine Moderate /hpf; Bilirubin,Urine Negative (Negative); Blood,Urine Negative (Negative); Calcium Oxalate Crystals,Urine Many /hpf; Color,Urine Yellow; Glucose,Urine (UA) Negative (Negative); Ketones,Urine Negative (Negative); Leukocyte Esterase,Urine Moderate (Negative); Mucus,Urine Rare /hpf; Nitrite,Urine Negative (Negative); PH, Urine 6.5 (5.0-8.0); Protein,Urine Trace (Negative); RBC,Urine 2 /hpf (0-5); Specific Gravity,Urine 1.016 (1.001-1.035); Squamous Epithelial Cell,Urine 5 /hpf (0-4); WBC,Urine 6 /hpf (0-5)
--- NOTE | 2021-04-15 15:38 | XR ---
EXAMINATION TYPE: XR chest 2V DATE OF EXAM: 04/15/2021 COMPARISON: None INDICATION: Presurgical clearance TECHNIQUE: Frontal and lateral views of the chest are obtained. FINDINGS: The heart size is normal. The pulmonary vasculature is normal. The lungs are clear. IMPRESSION: 1. No acute pulmonary process.
== END | disposition home or self-care (01) ==
LOC: LABPAT 12:35
PROVIDERS: ATTEND Orthopaedic Surgery Orthopaedic Surgery of the Spine
DX: Z01.818 Encounter for other preprocedural examination (principal); M50.223 Other cervical disc displacement at C6-C7 level; R94.31 Abnormal electrocardiogram [ECG] [EKG]
CPT/HCPCS: 36415; 71046; 80048; 81001; 85027; 85610; 85730; 93005

== ENCOUNTER 2021-05-06 06:43 | Day surgery (SDC) | payer BC ==
[2021-04-29 12:15] VITALS: BMI 42.0
[~2021-05-06 06:43] MED LIST changes: -DEXAMETHASONE SOD PHOSPHATE 10 MG/ML 1 ML VIAL IV ONE; -HEPARIN SODIUM,PORCINE 5,000 UNIT/ML 1 ML VIAL SQ ONE; -HYDROmorphone 0.5 MG/0.5 ML SYRINGE IVP PRN; -LACTATED RINGERS 1,000 ML IV SCH; -MIDAZOLAM 2 MG/2 ML VIAL IV PRN; -Pre Op ABX Message 1 EACH MISC MISCELLANE ONE; +SCOPOLAMINE 1.5MG/72HR PATCH TRANSDERM ONE; +ceFAZolin 1,000 MG in SODIUM CHLORIDE 0.9% IRRIGATIO 1,000 ML IRRIGATION PRN; -fentaNYL (PF) 50 MCG/ML 2 ML AMP IV PRN
[2021-05-06] MEDS ORDERED: HYDROmorphone 0.5 MG/0.5 ML SYRINGE IVP PRN ×2 (07:00→10:09)
[2021-05-06 07:18] LABS: Glucose,Whole Blood 87 mg/dL (75-99)
[2021-05-06] MEDS ORDERED: LACTATED RINGERS 1,000 ML IV ONE ×3 (07:31→08:00)
[2021-05-06] MEDS ORDERED: GLYCOPYRROLATE 0.2 MG/ML 2 ML VIAL ONE (07:55)
[2021-05-06] MEDS ORDERED: PROPOFOL 10 MG/ML 20 ML VIAL IV ONE (07:55)
[2021-05-06] MEDS ORDERED: MIDAZOLAM 2 MG/2 ML VIAL ONE (07:55)
[2021-05-06] MEDS ORDERED: fentaNYL (PF) 50 MCG/ML 2 ML AMP ONE (07:55)
[2021-05-06] MEDS ORDERED: NEOSTIGMINE 1 MG/ML 10 ML VIAL ONE (07:55)
[2021-05-06] MEDS ORDERED: ROCURONIUM 10 MG/ML (5 ML VIAL) IV ONE (07:55)
[2021-05-06] MEDS ORDERED: SUCCINYLCHOLINE CHLORIDE 100 MG/5 ML SYR IV ONE (07:55)
[2021-05-06] MEDS ORDERED: LIDOCAINE 1% INJ 10MG/ML (20 ML MDV) ONE (07:55)
[2021-05-06] MEDS ORDERED: GELATIN SPONGE,ABSORB (LARGE) 1 EACH SPONGE TOPICAL ONE (08:00)
[2021-05-06] MEDS ORDERED: LIDOCAINE 0.5%-EPI 1:200,000 50 ML VIAL SQ ONE (08:00)
[2021-05-06] MEDS ORDERED: THROMBIN (BOVINE) 5,000 UNIT VIAL TOPICAL ONE (08:00)
--- NOTE | 2021-05-06 10:05 | XR ---
EXAMINATION TYPE: XR cervical spine 1V DATE OF EXAM: 05/06/2021 COMPARISON: None HISTORY: Needle placement intraoperative TECHNIQUE: Lateral cervical spine FINDINGS: Needle structure towards the C6-7 level. Images somewhat limited with overlying shoulders. Patient is intubated. Anterior vertebral body spurring through the cervical spine is noted. IMPRESSION: 1. Needle directed towards the C6-7 level.
--- NOTE | 2021-05-06 10:06 | XR ---
EXAMINATION TYPE: XR cervical spine 1V DATE OF EXAM: 05/06/2021 COMPARISON: Earlier exam HISTORY: Hardware placement needle placement TECHNIQUE: Lateral cervical spine intraoperative FINDINGS: Patient is intubated. A metallic device is directed to the C5-6 level. IMPRESSION: 1. Metallic device directed towards C5-6 disc level.
--- NOTE | 2021-05-06 10:07 | XR ---
EXAMINATION TYPE: XR cervical spine 1V DATE OF EXAM: 05/06/2021 COMPARISON: 05/06/2021 earlier exam HISTORY: Anterior cervical fusion TECHNIQUE: Lateral cervical spine FINDINGS: Patient is intubated. Anterior cervical fusion extending from C5 inferiorly is evident. The distal aspect is poorly visualized and level cannot be clearly identified. There is abundant soft ti ssue overlying the lower cervical spine. IMPRESSION: 1. Status post anterior cervical fusion beginning at C5.
[2021-05-06] MEDS ORDERED: BENZOCAINE/MENTHOL LOZENG 1 EACH LOZENGE MUCOUS MEM PRN (10:09)
[2021-05-06] MEDS ORDERED: ONDANSETRON 4 MG/2 ML VIAL IVP PRN (10:10)
[2021-05-06] MEDS ORDERED: CYCLOBENZAPRINE 10 MG TAB PO PRN (10:10)
[2021-05-06] MEDS ORDERED: SENNOSIDES-DOCUSATE SODIUM 1 EACH TAB PO PRN (10:10)
--- NOTE | 2021-05-06 10:23 | P.OP ---
Date of Procedure: 05/06/21 Preoperative Diagnosis: Herniated nucleus pulposis C5 6 C6 7, severe stenosis C5 6 C6 7, upper extremity radiculopathy, upper extremity weakness, degenerative disc disease, neck pain Postoperative Diagnosis: Same Anesthesia: GETA Pathology: none sent Condition: stable Disposition: PACU Description of Procedure: BRIEF OPERATIVE NOTE Preoperative Diagnosis:Herniated nucleus pulposis C5 6 C6 7, severe stenosis C5 6 C6 7, upper extremity radiculopathy, upper extremity weakness, degenerative disc disease, neck pain Postoperative Diagnosis:Herniated nucleus pulposis C5 6 C6 7, severe stenosis C5 6 C6 7, upper extremity radiculopathy, upper extremity weakness, degenerative disc disease, neck pain Procedure: Anterior cervical decompression with discectomy and fusion C5 6 C6 7 Placement of interbody graft C5 6 C6 7 Application of anterior cervical plate C5 6 7 Surgeon: Dr. Swartz Meter Tester Primary: Kyaw MUNSON who is present throughout the entire the case persistence during positioning, dissection, exposure, visualization, and all crucial elements of the case as well as closure. Anesthesia: General anesthesia per Estimated blood loss: Approximately 75 mL Complications: None apparent Components implanted: K2M [place] anterior cervical plate system with screws and Vikos interbody autograft bone graft and 1 mL of DBX bone putty Disposition: To recovery room in good stable condition. OPERATIVE INDICATIONS The patient has had long-standing issues in their neck and upper extremities. She's been having worsening of her upper extremity symptoms and her pain over the past couple of months. She is found have a large disc herniation at C5 6 and C6 7 with severe cervical stenosis which causes a well with her neck pain and upper extremity radiculopathy and weakness. The patient has been through conservative treatment. We discussed various treatment options including surgery, and the patient wishes to proceed with surgery We discussed the risk, patient's alternatives and benefits of surgery including but not limited to, risk of bleeding risk of infection, risk of need for further surgery, risk of decreased, loss of motion, muscle function, malunion nonunion, hardware failure, nerve damage, paralysis, heart attack, and . OPERATIVE SUMMARY After discussing all the risks, patient alternatives and benefits at length, the patient elected to proceed with surgical intervention, signed informed consent, and presented for their procedure. The patient was seen and examined in the preoperative holding area and the surgical site was marked. The patient was given antibiotics and brought to the operating room. The patient was positioned on the operating room table in a supine position bein g careful to pad any bony prominences and pressure points. The patient was sedated and intubated by anesthesia in standard fashion. Once the airway and C- spine were stabilized the patient's arms were padded and tucked at her side, with her shoulders gently taped. The head was placed in a donut pad with the neck in good neutral alignment and position. We were careful to maintain the patient's cervical spine and good neutral alignment and position throughout. The patient was prepped and draped in a normal standard fashion. An appropriate timeout and keystone protocol performed. We were able to proceed with the surgery. The local wound area was infiltrated with local anesthetic. An incision was made transversely approximately 2-1/2 cm over the appropriate levels at C6. Dissection was taken down subcutaneously to the level of the platysma which was split in line with its fibers. Dissection was taken with a carotid approach, with the trachea and esophagus medial and the carotid sheath laterally. We dissected down to the anterior surface of the vertebral bodies. Intraoperative x-ray was taken which showed a marker at the appropriate level of C6 7. With the appropriate level positively confirmed, we were able to proceed with discectomy at the appropriate levels, starting at C5 6 and then moving to C6 7. All of the operative levels were exposed appropriately. The patient had very large anterior cervical osteophytes which had removed to expose the disc spaces themselves. The patient had all their twitches back, and there was no evidence of recurrent laryngeal issue. The wound was copiously irrigated and suctioned dry as had been done periodically throughout the case. At the appropriate level/levels, I established an annulotomy with an 11 blade scalpel. A discectomy was performed with a combination of pituitary rongeurs, curettes, a high-speed bur, and Kerrison rongeurs. The posterior longitudinal ligament was taken down as were any posterior osteophytes. There is no significant disc herniation with posterior spurring which was able to be removed with the decompression and discectomy. This gave good central and bilateral foraminal decompression. There is no evidence of any dural tear or leak. The endplates were prepared with a high-speed bur. With the endplates in good parallel position, I was able to size for the appropriate size interbody graft. The wound was irrigated and suctioned dry the graft was prepared and malleted into position. It had good alignment and position with the anterior surface flush with the anterior surface of the vertebral bodies. This was done similarly the appropriate levels first at C5 6 and then at C6 7 . With the grafts intact, I was able to measure and contour and appropriate sized plate. The plate was positioned at the midline over the appropriate levels at C5 6 and 7. Screw holes were established with a hand drill and drill guide. Screws were placed in good alignment and position with excellent bony purchase. They were seated under the locking device. The construct was checked and found to be stable. Intraoperative x-ray was taken which showed good alignment and position of the implants at the appropriate levels. There was no evidence of any dural tear or leak. Good hemostasis was maintained. The wound was copiously irrigated and suctioned dry as had been done periodically throughout the case. The platysma was closed with absorbable suture. The subcutaneous tissue was closed. The subcuticular tissue was closed with absorbable suture. The wound was cleaned and dried and dressed appropriately. A soft cervical collar was placed appropriately. The patient was woken up by anesthesia, extubated, transferred back gently to their hospital bed and brought to the recovery room in good stable condition. The patient will be admitted to the hospital for appropriate postoperative care, medical management and monitoring. We will continue to follow them closely about the postoperative course.
[2021-05-06 10:48] LABS: Glucose,Whole Blood 105 mg/dL (75-99)
[2021-05-06] MEDS ORDERED: LABETALOL SYRINGE 5 MG/ML IVP ONE (10:55)
[2021-05-06] MEDS ORDERED: INSULIN ASPART (NovoLOG) 100 UNIT/ML VIAL SQ SCH ×2 (13:00→17:30)
[2021-05-06] MEDS: LACTATED RINGERS 1,000 ML IV SCH (13:11)
[2021-05-06] MEDS: HYDROcodone/APAP 5-325MG 1 EACH TAB PO PRN (13:34)
[2021-05-06] MEDS: SODIUM CHLORIDE 0.9% 1,000 ML IV SCH (15:35)
[2021-05-06 17:09] LABS: Glucose,Whole Blood 140 mg/dL (75-99)
[2021-05-06] MEDS: metFORMIN 500 MG TAB PO SCH (18:06)
[2021-05-06 19:57] LABS: Glucose,Whole Blood 163 mg/dL (75-99)
[2021-05-06] MEDS: INSULIN DETEMIR (LEVEMIR) 100 UNIT/ML SYR SQ SCH (20:48)
[2021-05-06] MEDS ORDERED: EZETIMIBE 10 MG TAB PO SCH (21:00)
[2021-05-06] MEDS ORDERED: PRAVASTATIN SODIUM 40 MG TAB PO SCH (21:00)
[2021-05-07] MEDS: SODIUM CHLORIDE 0.9% 1,000 ML IV SCH (01:02)
[2021-05-07] MEDS: HYDROcodone/APAP 5-325MG 1 EACH TAB PO PRN ×2 (02:43→12:49)
[2021-05-07] MEDS ORDERED: LEVOTHYROXINE 100 MCG TAB PO SCH (06:30)
[2021-05-07 07:12] LABS: Glucose,Whole Blood 116 mg/dL (75-99)
[2021-05-07] MEDS ORDERED: INSULIN ASPART (NovoLOG) 100 UNIT/ML VIAL SQ SCH (07:30)
[2021-05-07] MEDS: LACTATED RINGERS 1,000 ML IV SCH (07:33)
[2021-05-07] MEDS: metFORMIN 500 MG TAB PO SCH (08:23)
[2021-05-07] MEDS: INSULIN DETEMIR (LEVEMIR) 100 UNIT/ML SYR SQ SCH (08:24)
[2021-05-07] MEDS ORDERED: SENNOSIDES-DOCUSATE SODIUM 1 EACH TAB PO SCH (09:00)
[2021-05-07] MEDS ORDERED: BUMETANIDE 1 MG TAB PO SCH (09:00)
[2021-05-07] MEDS ORDERED: DULoxetine HCL 60 MG CAPSULE.DR PO SCH (09:00)
[2021-05-07] MEDS ORDERED: LORATADINE 10 MG TAB PO SCH (09:00)
[2021-05-07] MEDS ORDERED: LOSARTAN 25 MG TAB PO SCH (09:00)
[2021-05-07] MEDS ORDERED: ISOSORBIDE MONONITRATE ER 30 MG TAB.ER.24H PO SCH (09:00)
[2021-05-07] MEDS ORDERED: POTASSIUM CITRATE 10 MEQ TABLET.ER PO SCH (09:00)
[2021-05-07 11:28] LABS: Glucose,Whole Blood 102 mg/dL (75-99)
--- NOTE | 2021-05-07 11:44 | P.DS ---
Providers Expected date of discharge: 05/07/21 Attending physician: Kenan Swartz Primary care physician[place] [facility] Course: This is a 56-year-old female with known history of long-standing issues in the neck and upper extremities. The patient presented for evaluation as an outpatient. After discussion and consideration patient elects to proceed with cervical fusion. The patient is seen preoperatively by Dr. Swartz and medically cleared for surgery by their primary care physician. Patient is admitted to [facility] on 05/06/2021 for anterior cervical decompression discectomy and fusion at C5-6, C6-7. The procedure is performed without complication or sequelae. The patient is doing well postoperatively. Vital signs are stable on day of discharge. Patient is seen and examined bedside this morning. She states her pain is well controlled. She tolerated his breakfast well. She is voiding without issue. She denies chest pain, shortness breath, nausea, vomiting, fevers, chills, numbness or tingling in the upper extremities. No complaints this morning. On day of discharge patient's cervical incision is healing well. No bleeding or drainage through the dressing. Motor and sensory function is intact of the bilateral upper extremities. Calves are soft and nontender to palpation bilaterally. Patient is discharged home in good condition. Opioid start talking form is reviewed and signed. Please see med rec for accurate list of home medications. Plan - Discharge Summary Discharge Rx Participant: Yes New Discharge Prescriptions: No Action INSULIN ASPART (NovoLOG) [NovoLOG (formulary)] 18 unit SQ AC-BRKFST INSULIN ASPART (NovoLOG) [NovoLOG (formulary)] 44 unit SQ AC-LUNCH metFORMIN HCL [Glucophage] 1,000 mg PO BID Pravastatin Sodium [Pravachol] 40 mg PO HS Losartan [Cozaar] 75 mg PO QAM Levothyroxine Sodium [Synthroid] 100 mcg PO QAM Ezetimibe [Zetia] 10 mg PO HS DULoxetine HCL [Cymbalta] 60 mg PO QAM Cetirizine HCl [Zyrtec] 10 mg PO QAM Bumetanide [Bumex] 0.5 mg PO QAM INSULIN ASPART (NovoLOG) [NovoLOG (formulary)] 44 unit SQ AC-SUPPER Dulaglutide [Trulicity] 1.5 mg SQ WEEKLY Potassium Citrate [Potassium Citrate ER] 10 meq PO QAM Exemestane [Aromasin] 25 mg PO DAILY Isosorbide Mononitrate [Isosorbide Mononitrate ER] 30 mg PO DAILY Insulin Glargine,Hum.rec.anlog [Toujeo Solostar] 94 units SQ BID Discharge Medication List Bumetanide [Bumex] 0.5 mg PO QAM 06/21/19 [History] Cetirizine HCl [Zyrtec] 10 mg PO QAM 06/21/19 [History] DULoxetine HCL [Cymbalta] 60 mg PO QAM 06/21/19 [History] Ezetimibe [Zetia] 10 mg PO HS 06/21/19 [History] INSULIN ASPART (NovoLOG) [NovoLOG (formulary)] 18 unit SQ AC-BRKFST 06/21/19 [History] INSULIN ASPART (NovoLOG) [NovoLOG (formulary)] 44 unit SQ AC-LUNCH 06/21/19 [History] INSULIN ASPART (NovoLOG) [NovoLOG (formulary)] 44 unit SQ AC-SUPPER 06/21/19 [History] Levothyroxine Sodium [Synthroid] 100 mcg PO QAM 06/21/19 [History] Losartan [Cozaar] 75 mg PO QAM 06/21/19 [History] Pravastatin Sodium [Pravachol] 40 mg PO HS 06/21/19 [History] metFORMIN HCL [Glucophage] 1,000 mg PO BID 06/21/19 [History] Dulaglutide [Trulicity] 1.5 mg SQ WEEKLY 09/24/19 [History] Potassium Citrate [Potassium Citrate ER] 10 meq PO QAM 09/24/19 [History] Exemestane [Aromasin] 25 mg PO DAILY 02/29/20 [History] Insulin Glargine,Hum.rec.anlog [Toujeo Solostar] 94 units SQ BID 04/29/21 [History] Isosorbide Mononitrate [Isosorbide Mononitrate ER] 30 mg PO DAILY 04/29/21 [History] Follow up Appointment(s)/Referral(s): Kenan Swartz DO [Doctor of Osteopathic Medicine] - 2 Weeks Activity/Diet/Wound Care/Special Instructions: Keep site clean. May shower with waterproof Tegaderm intact. Do not soak in a tub. After 72 hours postoperatively, patient May remove dressing and then may shower with area uncovered. Leave glue intact and allow it to fray off on its own. May ambulate as tolerated. Avoid heavy or rigorous activity. No repetitive bending twisting or lifting. No overhead work. Discharge Disposition: HOME SELF-CARE
[2021-05-07 12:21] VITALS: BP 167/71; PULSE 98; RESP 18; TEMP 99.1
[2021-05-13] MEDS ORDERED: NON FORMULARY DRUG (Dulaglutide [Trulicity] 1.5 MG/0.5 ML Pen.Injctr) SQ SCH (09:00)
== END 2021-05-07 13:04 | disposition home or self-care (01) ==
LOC: OR 06:43 → 5NMEDONC 12:33 → OR 05-07 13:04
PROVIDERS: ATTEND Orthopaedic Surgery Orthopaedic Surgery of the Spine
DX: M50.122 Cervical disc disorder at C5-C6 level with radiculopathy (principal); M50.322 Other cervical disc degeneration at C5-C6 level; M50.323 Other cervical disc degeneration at C6-C7 level; M50.222 Other cervical disc displacement at C5-C6 level; M48.02 Spinal stenosis, cervical region; M25.511 Pain in right shoulder; J30.9 Allergic rhinitis, unspecified; I10 Essential (primary) hypertension; G47.33 Obstructive sleep apnea (adult) (pediatric); E78.5 Hyperlipidemia, unspecified; E10.9 Type 1 diabetes mellitus without complications; E66.9 Obesity, unspecified; Z68.41 Body mass index [BMI] 40.0-44.9, adult; E03.9 Hypothyroidism, unspecified; F32.9 Major depressive disorder, single episode, unspecified; Z87.442 Personal history of urinary calculi; Z79.890 Hormone replacement therapy; Z79.4 Long term (current) use of insulin; Z79.899 Other long term (current) drug therapy; Z87.891 Personal history of nicotine dependence; Z82.49 Family history of ischemic heart disease and other diseases of the circulatory system
CPT/HCPCS: 86900; 86901; 86850; 72020; 36415; 22551; 22552; 20936; 22845; J0690 ×2; J2405

== ENCOUNTER 2021-06-19 07:27 | Day surgery (SDC) | payer BC ==
[2021-06-19] MEDS ORDERED: SODIUM CHLORIDE 0.9% 1,000 ML IV ONE (07:37)
[2021-06-19] MEDS ORDERED: ALPRAZolam 0.5 MG TAB PO PRN (07:38)
[2021-06-19] MEDS ORDERED: HEPARIN SODIUM,PORCINE 10,000 UNIT in SODIUM CHLORIDE 0.9% 1,000 ML IRRIGATION PRN (07:38)
[2021-06-19] MEDS ORDERED: HEPARIN SODIUM,PORCINE 2,500 UNIT in SODIUM CHLORIDE 0.9% 250 ML IRRIGATION PRN (07:38)
[2021-06-19] MEDS ORDERED: ASPIRIN 325 MG TAB PO STA (07:38)
[2021-06-19] MEDS ORDERED: NITROGLYCERIN SL TABS 0.4 MG TAB SUBLINGUAL PRN (07:38)
[2021-06-19] MEDS ORDERED: ATORVASTATIN 80 MG TAB PO STA (07:38)
[2021-06-19] MEDS ORDERED: ALPRAZolam 0.25 MG TAB PO PRN (07:38)
[2021-06-19] MEDS: INSULIN ASPART (NovoLOG) 100 UNIT/ML VIAL SQ SCH ×4 (07:52→20:41)
[2021-06-19 07:59] LABS: Glucose,Whole Blood 313 mg/dL (75-99)
[2021-06-19 08:10] LABS: Basophils % (A) 0 %; Eosinophils # (A) 0.1 k/uL (0-0.7); Eosinophils % (A) 1 %; HCT 40.4 % (34.0-46.0); HGB 13.6 gm/dL (11.4-16.0); Lymphocytes # (A) 1.5 k/uL (1.0-4.8); Lymphocytes % (A) 15 %; MCH 29.1 pg (25.0-35.0); MCHC 33.7 g/dL (31.0-37.0); MCV 86.3 fL (80.0-100.0); Mean Platelet Volume 7.1; Monocytes # (A) 0.4 k/uL (0-1.0); Monocytes % (A) 4 %; Neutrophils # (A) 7.8 k/uL (1.3-7.7); Neutrophils % (A) 80 %; Platelet Count 340 k/uL (150-450); Poikilocytosis Slight; RBC 4.68 m/uL (3.80-5.40); RDW 14.9 % (11.5-15.5); WBC 9.8 k/uL (3.8-10.6)
[2021-06-19 08:28] LABS: African American GFR (CKD) >90 (>60 ml/min/1.73 sqM); Anion Gap 11 mmol/L; Blood Urea Nitrogen 12 mg/dL (7-17); Calcium 10.4 mg/dL (8.4-10.2); Carbon Dioxide 24 mmol/L (22-30); Chloride 100 mmol/L (98-107); Glucose 330 mg/dL (74-99); Non-African American GFR(CKD) 89 (>60 ml/min/1.73 sqM); Potassium 4.8 mmol/L (3.5-5.1); Sodium 135 mmol/L (137-145)
[2021-06-19] MEDS ORDERED: VERAPAMIL 2.5 MG/ML 2 ML AMP ONE (09:30)
[2021-06-19] MEDS ORDERED: LIDOCAINE 1% INJ 10MG/ML (20 ML MDV) ONE (09:30)
[2021-06-19] MEDS ORDERED: fentaNYL (PF) 50 MCG/ML 2 ML AMP ONE (09:30)
[2021-06-19] MEDS ORDERED: LIDOCAINE 1% INJ 10MG/ML (20 ML MDV) SQ ONE (09:41)
[2021-06-19] MEDS ORDERED: MIDAZOLAM 2 MG/2 ML VIAL IV ONE (09:41)
[2021-06-19] MEDS ORDERED: VERAPAMIL SYRINGE (5 MG/10 ML) INTRAARTER ONE (09:43)
[2021-06-19] MEDS ORDERED: HEPARIN SODIUM 1,000 UN/ML (10ML VL) ONE (09:48)
[2021-06-19] MEDS ORDERED: NITROGLYCERIN SL TABS 0.4 MG TAB SUBLINGUAL ONE ×4 (09:52→10:24)
[2021-06-19] MEDS ORDERED: HEPARIN SODIUM 1,000 UN/ML (10ML VL) IV ONE ×3 (09:52→10:45)
[2021-06-19] MEDS ORDERED: fentaNYL (PF) 50 MCG/ML 2 ML AMP IV ONE ×2 (10:11→10:15)
[2021-06-19] MEDS ORDERED: IOPAMIDOL-370 125ML BTL INJ ONE (10:27)
--- NOTE | 2021-06-19 10:34 | CC ---
CARDIAC CATHETERIZATION REPORT REFERRING PHYSICIAN: Dr. Quintana. INDICATION: Exertional shortness of breath and chest pain with abnormal stress test showing ischemia in the inferoapical area. PROCEDURE NOTE: After obtaining informed consent, left heart catheterization and coronary angiogram are performed via the right femoral artery using standard Shakeel catheters. Right coronary artery and LV pressures were obtained using size 4 Shakeel catheter and the left coronary system was engaged using a 3.5 Shakeel catheter and the most selective images of the LAD were obtained using a 3.0 guide. The patient tolerated the procedure well without any obvious immediate complications. FINDINGS: HEMODYNAMICS: Left ventricular end-diastolic pressure is 20 mm. There is no significant gradient across the aortic valve. LEFT VENTRICULOGRAM: Not performed. ANGIOGRAPHIC DATA: LEFT MAIN CORONARY ARTERY: Left main coronary artery is a short vessel and is free of stenosis. Divides into circumflex coronary artery which is a large dominant vessel and LAD. LEFT ANTERIOR DESCENDING CORONARY ARTERY: The LAD was selectively engaged using a 3.0 coronary guide. There is a focal area of 70-80 percent stenosis involving mid LAD. RIGHT CORONARY ARTERY is a small nondominant vessel. The patient received moderate conscious sedation. Total sedation time was 31 minutes. CONCLUSIONS: Focal 70-80 percent stenosis involving mid LAD. PLAN: The patient will undergo angioplasty with stent placement of the same. MMODL / IJN: [id number] /
--- NOTE | 2021-06-19 10:34 | LTR ---
DATE OF SERVICE: 06/19/2021 Dear [place]: I performed cardiac catheterization on Yumiko Hoffmann. A detailed catheterization note is enclosed for your records. In brief, the cardiac catheterization revealed a 70-80 percent focal stenosis involving mid LAD and patient will undergo angioplasty with stent placement of the same. Sincerely, NATA / DARIUS: [id number] /
[2021-06-19] MEDS ORDERED: CLOPIDOGREL 75 MG TAB ONE (10:36)
[2021-06-19] MEDS ORDERED: CLOPIDOGREL 75 MG TAB PO ONE (10:40)
[2021-06-19] MEDS ORDERED: IOPAMIDOL-370 100ML BTL INJ ONE (10:52)
[2021-06-19] MEDS ORDERED: ZOLPIDEM 5 MG TAB PO PRN (10:53)
[2021-06-19] MEDS ORDERED: RX INFO: IV CONTRAST WAS GIVEN 1 EACH MISC MISCELLANE PRN (10:53)
[2021-06-19] MEDS ORDERED: ATROPINE SULFATE 0.1 MG/ML 10ML SYRINGE IV PRN (10:53)
[2021-06-19] MEDS ORDERED: MAG HYDROX/AL HYDROX/SIMETH 30 ML CUP PO PRN (10:53)
--- NOTE | 2021-06-19 11:34 | PTCA ---
PERCUTANEOUSTRANS CORORONARY ANGIOGRAPHY DATE OF SERVICE: 06/19/2021 PROCEDURE: Percutaneous transluminal coronary angioplasty and stenting of mid left anterior descending coronary artery with a drug-eluting stent. PERFORMED BY: Dr. Echo Matute. Moderate conscious sedation time was 36 minutes. Patient was administered Versed. Oxygen saturation, hemodynamics and EKG were monitored closely. CLINICAL INFORMATION: Mrs. Yumiko Hoffmann is a 56-year-old lady with history of type 2 diabetes, hypertension and hyperlipidemia who had a positive stress test and underwent cardiac cath by Dr. Reed. I actually assisted Dr. Reed in his right radial cath. The patient had no significant disease in the nondominant RCA and the dominant circumflex. LAD almost had a separate origin and was coming off from a very superior and somewhat posterior location. We had difficulty cannulating the LAD selectively. A 3.0 left Shakeel-type guide catheter was used to cannulate it during the diagnostic catheterization. I noted that there was a significant mid LAD lesion and I proceeded with PCI in the same setting. PCI PROCEDURE DETAILS: I used an XB LAD3.0 guide catheter and selectively cannulated the LAD. There was some damping. I adjusted the guide catheter. A run-through wire was used to cross the lesion. Predilatation was performed with a 2.5 caliber 12 mm long NC Trek balloon. I then deployed a 3.25 caliber 12 mm long Xience stent at 14 atmospheres. Patient had mild chest discomfort and precordial ST elevation. Excellent angiographic result without complication was achieved. The sheath was taken out and TR band applied as per protocol with saturation in the fingers of the right hand of 95%. Excellent result was achieved without complication. Details were discussed with the patient and her . She received 600 mg of Plavix. The patient received 6000 units of heparin and ACT initially was 399. Repeat ACT was 208. Additional 1500 units of heparin was given. The patient was sent to the room in a stable condition. MMODL / IJN: [id number] /
[2021-06-19 11:42] LABS: Glucose,Whole Blood 304 mg/dL (75-99)
[2021-06-19] MEDS ORDERED: INSULIN ASPART (NovoLOG) 100 UNIT/ML VIAL SQ SCH ×2 (12:30→17:30)
[2021-06-19] MEDS ORDERED: ISOSORBIDE MONONITRATE ER 30 MG TAB.ER.24H PO STA (13:23)
[2021-06-19] MEDS: SODIUM CHLORIDE 0.9% 1,000 ML in EMPTY BAG 1 BAG IV SCH ×2 (14:08→19:02)
[2021-06-19 15:17] VITALS: BMI 40.4
[2021-06-19] MEDS: SODIUM CHLORIDE 0.9% 1,000 ML IV SCH (16:30)
[2021-06-19 17:12] LABS: Glucose,Whole Blood 325 mg/dL (75-99)
[2021-06-19 20:42] LABS: Glucose,Whole Blood 411 mg/dL (75-99)
[2021-06-19] MEDS: INSULIN DETEMIR (LEVEMIR) 100 UNIT/ML SYR SQ SCH (20:42)
[2021-06-19] MEDS ORDERED: ATORVASTATIN 80 MG TAB PO SCH (21:00)
[2021-06-19] MEDS ORDERED: EZETIMIBE 10 MG TAB PO SCH (21:00)
[2021-06-20] MEDS: SODIUM CHLORIDE 0.9% 1,000 ML in EMPTY BAG 1 BAG IV SCH (00:19)
[2021-06-20] MEDS: SODIUM CHLORIDE 0.9% 1,000 ML IV SCH (00:19)
[2021-06-20] MEDS ORDERED: LEVOTHYROXINE 100 MCG TAB PO SCH (06:30)
[2021-06-20 07:18] LABS: Glucose,Whole Blood 176 mg/dL (75-99)
[2021-06-20] MEDS ORDERED: INSULIN ASPART (NovoLOG) 100 UNIT/ML VIAL SQ SCH (07:30)
[2021-06-20 07:39] LABS: Basophils # (A) 0.1 k/uL (0-0.2); Basophils % (A) 1 %; Eosinophils # (A) 0.1 k/uL (0-0.7); Eosinophils % (A) 1 %; HCT 37.3 % (34.0-46.0); HGB 12.1 gm/dL (11.4-16.0); Lymphocytes # (A) 2.9 k/uL (1.0-4.8); Lymphocytes % (A) 32 %; MCH 28.7 pg (25.0-35.0); MCHC 32.5 g/dL (31.0-37.0); MCV 88.3 fL (80.0-100.0); Mean Platelet Volume 7.4; Monocytes # (A) 0.4 k/uL (0-1.0); Monocytes % (A) 4 %; Neutrophils # (A) 5.7 k/uL (1.3-7.7); Neutrophils % (A) 62 %; Platelet Count 247 k/uL (150-450); RBC 4.22 m/uL (3.80-5.40); RDW 14.5 % (11.5-15.5); WBC 9.3 k/uL (3.8-10.6)
[2021-06-20] MEDS: INSULIN ASPART (NovoLOG) 100 UNIT/ML VIAL SQ SCH (08:02)
[2021-06-20 08:15] VITALS: BP 147/82; PULSE 75; RESP 17; TEMP 97.5
[2021-06-20] MEDS: INSULIN DETEMIR (LEVEMIR) 100 UNIT/ML SYR SQ SCH (08:35)
[2021-06-20] MEDS ORDERED: LORATADINE 10 MG TAB PO SCH (09:00)
[2021-06-20] MEDS ORDERED: ASPIRIN 81 MG PO SCH (09:00)
[2021-06-20] MEDS ORDERED: NON FORMULARY DRUG (Exemestane [Aromasin] 25 MG Tablet) PO SCH (09:00)
[2021-06-20] MEDS ORDERED: ISOSORBIDE MONONITRATE ER 30 MG TAB.ER.24H PO SCH (09:00)
[2021-06-20] MEDS ORDERED: CLOPIDOGREL 75 MG TAB PO SCH (09:00)
[2021-06-20] MEDS ORDERED: DULoxetine HCL 60 MG CAPSULE.DR PO SCH (09:00)
[2021-06-20] MEDS ORDERED: BUMETANIDE 1 MG TAB PO SCH (09:00)
[2021-06-20] MEDS ORDERED: LOSARTAN 25 MG TAB PO SCH (09:00)
[2021-06-20] MEDS ORDERED: FAMOTIDINE 20 MG TAB PO SCH (09:00)
[2021-06-20] MEDS ORDERED: POTASSIUM CITRATE 10 MEQ TABLET.ER PO SCH (09:00)
--- NOTE | 2021-06-20 11:27 | P.DS ---
Providers Date of admission: 06/19/2021 Expected date of discharge: 06/20/21 Attending physician: Ken Reed Consults: 06/19/21 10:54 Consult Physician Routine Consulting Provider: [facility] Consult Reason/Comments: Post Interventional patient Do you want consulting provider notified?: Already Contacted Primary care physician: [facility] Course: Physical pleasant 56-year-old female patient with a history of hypertension, hyperlipidemia and diabetes type 2. She had been having exertional shortness of breath and chest discomfort. Underwent MPI which came and show inferoapical ischemia. She subsequently underwent cardiac catheterization via right radial approach which showed 70-80% stenosis involving the mid LAD. She then underwent PCI of that lesion by Dr. RENETTA Matute. She has been initiated on dual antiplatelet therapy. Upon examination she is resting comfortably in bed. Denies any complaints of shortness of breath or chest discomfort. No changes noted on EKG done this morning. PHYSICAL EXAMINATION: HEENT: Head is atraumatic, normocephalic. Pupils equal, round. Neck is supple. There is no elevated jugular venous pressure. HEART EXAMINATION: Heart sounds regular, S1 and S2 normal with a soft systolic murmur at the base. CHEST EXAMINATION: Lungs are clear to auscultation. No chest wall tenderness is noted on palpation or with deep breathing. ABDOMEN: Soft, nontender. Bowel sounds are heard. No organomegaly noted. EXTREMITIES: 2+ peripheral pulses with no evidence of peripheral edema and no calf tenderness noted. Right radial puncture site clean and dry, TR band removed, pulse palpable, no ecchymosis or hematoma. NEUROLOGIC patient is awake, alert and oriented x3. Assessment: #1 CAD status post stenting of the mid LAD #2 hypertension #3 hyperlipidemia #4 diabetes mellitus type 2 Plan Patient will be discharged home on dual antiplatelet therapy and statin. 2 follow-up in the office in about a week. Patient Condition at Discharge: Stable Plan - Discharge Summary Discharge Rx Participant: Yes New Discharge Prescriptions: New Aspirin 81 mg PO DAILY tab Atorvastatin [Lipitor] 80 mg PO HS #90 tab Nitroglycerin Sl Tabs [Nitrostat] 0.4 mg SUBLINGUAL Q5M PRN #25 tab PRN Reason: Chest Pain Clopidogrel [Plavix] 75 mg PO DAILY #90 tab Continue INSULIN ASPART (NovoLOG) [NovoLOG (formulary)] 18 unit SQ AC-BRKFST INSULIN ASPART (NovoLOG) [NovoLOG (formulary)] 44 unit SQ AC-LUNCH metFORMIN HCL [Glucophage] 1,000 mg PO BID Losartan [Cozaar] 75 mg PO QAM Levothyroxine Sodium [Synthroid] 100 mcg PO QAM Ezetimibe [Zetia] 10 mg PO HS DULoxetine HCL [Cymbalta] 60 mg PO QAM Cetirizine HCl [Zyrtec] 10 mg PO QAM Bumetanide [BUMEX] 0.5 mg PO QAM INSULIN ASPART (NovoLOG) [NovoLOG (formulary)] 44 unit SQ AC-SUPPER Dulaglutide [Trulicity] 1.5 mg SQ WEEKLY Potassium Citrate [Potassium Citrate ER] 10 meq PO QAM Exemestane [Aromasin] 25 mg PO DAILY Insulin Glargine,Hum.rec.anlog [Toujeo Solostar] 94 units SQ BID Famotidine 40 mg PO DAILY diphenhydrAMINE HCL [Benadryl] 25 mg PO BID Discontinued Pravastatin Sodium [Pravachol] 40 mg PO HS Isosorbide Mononitrate [Isosorbide Mononitrate ER] 30 mg PO DAILY predniSONE [Deltasone] 20 mg PO BID Discharge Medication List Bumetanide [BUMEX] 0.5 mg PO QAM 06/21/19 [History] Cetirizine HCl [Zyrtec] 10 mg PO QAM 06/21/19 [History] DULoxetine HCL [Cymbalta] 60 mg PO QAM 06/21/19 [History] Ezetimibe [Zetia] 10 mg PO HS 06/21/19 [History] INSULIN ASPART (NovoLOG) [NovoLOG (formulary)] 18 unit SQ AC-BRKFST 06/21/19 [History] INSULIN ASPART (NovoLOG) [NovoLOG (formulary)] 44 unit SQ AC-LUNCH 06/21/19 [History] INSULIN ASPART (NovoLOG) [NovoLOG (formulary)] 44 unit SQ AC-SUPPER 06/21/19 [History] Levothyroxine Sodium [Synthroid] 100 mcg PO QAM 06/21/19 [History] Losartan [Cozaar] 75 mg PO QAM 06/21/19 [History] metFORMIN HCL [Glucophage] 1,000 mg PO BID 06/21/19 [History] Dulaglutide [Trulicity] 1.5 mg SQ WEEKLY 09/24/19 [History] Potassium Citrate [Potassium Citrate ER] 10 meq PO QAM 09/24/19 [History] Exemestane [Aromasin] 25 mg PO DAILY 02/29/20 [History] Insulin Glargine,Hum.rec.anlog [Toujeo Solostar] 94 units SQ BID 04/29/21 [History] Famotidine 40 mg PO DAILY 06/18/21 [History] diphenhydrAMINE HCL [Benadryl] 25 mg PO BID 06/18/21 [History] Aspirin 81 mg PO DAILY tab 06/20/21 [Rx] Atorvastatin [Lipitor] 80 mg PO HS #90 tab 06/20/21 [Rx] Clopidogrel [Plavix] 75 mg PO DAILY #90 tab 06/20/21 [Rx] Nitroglycerin Sl Tabs [Nitrostat] 0.4 mg SUBLINGUAL Q5M PRN #25 tab 06/20/21 [Rx] Follow up Appointment(s)/Referral(s): Ken Reed MD [STAFF PHYSICIAN] - 06/26/21 10:30 am (Follow up in the office with Dr. Reed for a site check as previously scheduled) Patient Instructions/Handouts: After Radial Heart Catheterization (GEN) Activity/Diet/Wound Care/Special Instructions: See Activity Restriction Instructions
[2021-06-20 19:16] LABS: African American GFR (CKD) >90 (>60 ml/min/1.73 sqM); Anion Gap 8 mmol/L; Blood Urea Nitrogen 14 mg/dL (7-17); Calcium 9.5 mg/dL (8.4-10.2); Carbon Dioxide 23 mmol/L (22-30); Chloride 106 mmol/L (98-107); Glucose 187 mg/dL (74-99); Non-African American GFR(CKD) 89 (>60 ml/min/1.73 sqM); Potassium 3.9 mmol/L (3.5-5.1); Sodium 137 mmol/L (137-145)
[2021-06-26] MEDS ORDERED: NON FORMULARY DRUG (Dulaglutide [Trulicity] 1.5 MG/0.5 ML Pen.Injctr) SQ SCH (09:00)
== END 2021-06-20 11:55 | disposition home or self-care (01) ==
LOC: CATHCVL 07:27 → 6NMEDSUR 10:46 → CATHCVL 06-20 11:55
PROVIDERS: ATTEND Internal Medicine Cardiovascular Disease
DX: I25.10 Atherosclerotic heart disease of native coronary artery without angina pectoris (principal); I10 Essential (primary) hypertension; E78.5 Hyperlipidemia, unspecified; E11.9 Type 2 diabetes mellitus without complications; Z79.02 Long term (current) use of antithrombotics/antiplatelets; Z79.4 Long term (current) use of insulin; Z79.811 Long term (current) use of aromatase inhibitors; Z79.82 Long term (current) use of aspirin; Z95.5 Presence of coronary angioplasty implant and graft; Z20.822 Contact with and (suspected) exposure to COVID-19
CPT/HCPCS: 93458; 80048 ×2; 85025 ×2; 87635; C9600; C1887 ×2; C1894; C1725; C1769; C1874; J2250; J2001; J3010; J1644; Q9967 ×2

== ENCOUNTER → 2021-10-26 | Outpatient (CLI) | payer BC ==
--- NOTE | 2021-10-28 12:24 | MM ---
Reason for exam: screening (asymptomatic). Last mammogram was performed 1 year ago. History: Patient is postmenopausal and has history of high-risk lesion on a previous biopsy at age 54. Implant in the right breast, March 2020. High risk MG pre op needle loc LT of the left breast, October 23, 2019. Benign US biopsy breast VAD LT of the left breast, October 08, 2019. Implant in the left breast, October 2019. Benign left US cyst aspiration ea add of the left breast, December 29, 2007. Benign left US cyst aspiration of the left breast, December 29, 2007. Benign left US cyst aspiration ea add of the left breast, May 06, 2006. Benign left US cyst aspiration of the left breast, May 06, 2006. Benign US left CoreBiopsy of the left breast, May 06, 2006. Took hormonal contraceptives for 1 year beginning at age 21. Taking antineoplastic for 2 years beginning at age 54. Took other hormone for 1 year. Physical Findings: A clinical breast exam by your physician is recommended on an annual basis and results should be correlated with mammographic findings. MG 3D Screening Mammo W/Cad Bilateral CC, MLO, and XCCL view(s) were taken. Prior study comparison: October 21, 2020, bilateral MG 3d diag mammo w/cad YANET. October 08, 2019, left breast MG diagnostic mammo LT wo CAD. The breast tissue is heterogeneously dense. This may lower the sensitivity of mammography. There is chronic nodularity in the right breast along with upper outer quadrant global asymmetry. Unchanged regional punctate calcifications bilaterally. Post excisional changes left breast. Increasing grouped microcalcifications central left breast, likely early fat necrosis on 3D images. 6 month follow up recommended. ASSESSMENT: Probably benign, BI-RAD 3 RECOMMENDATION: Follow-up diagnostic mammogram of the left breast in 6 months.
== END | disposition home or self-care (01) ==
LOC: RADMAMWWP 08:47
PROVIDERS: ATTEND Surgery
DX: Z12.31 Encounter for screening mammogram for malignant neoplasm of breast (principal); Z78.0 Asymptomatic menopausal state
CPT/HCPCS: 77063; 77067

== ENCOUNTER → 2021-10-30 | Outpatient (CLI) | payer BC ==
[2021-10-30 15:58] VITALS: BP 158/83; PULSE 78; RESP 16; TEMP 97.7
--- NOTE | 2021-10-30 16:02 | P.PN ---
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 This revealed no lesions of concern in the right breast. In the left breast there was architectural distortion in the middle position as well as some calcifications in both breasts which were felt to be benign. She underwent an ultrasound of the left breast. This was performed on 1222. This revealed multiple cystic areas as well a lesion at 10:00 which was a possible intraductal lesion. She was noted to have mult iple lymph nodes in the axilla and recommendation was for an ultrasound-guided core biopsy of the lesion of the left breast at 10:00. Ultrasound core biopsy was benign. The lesion however was felt to be discordant after review with Dr. Pool from radiology. The patient was therefore recommended to undergo a needle local excisional resection, /partial mastectomy via crescent mastopexy of this area. This was performed and . This revealed extensive lobular neoplasia, Atypical lobular hyperplasia/lobular carcinoma in situ. No invasive malignancy was identified. The patient had a partial mastectomy for discordant lesion via a crescent mastopexy of the left breast. This has resulted in asymmetry of the nipple location for the right breast. Secondary to the atypical lobular hyperplasia/LCIS the patient was seen by medical oncology. She was started on Aromasin to reduce risk of development of breast cancer. Additionally she had an MRI done of both breasts on 01-17-20 which was benign, showing only a seroma in the left breast. She underwent a crescent mastopexy of the right breast in March 2020. 10-30-21 Bilateral mammogram on 10-26-21 recommend left breast repeat mammogram in 6 months. Changes probably fat necrosis. No lesions of concern in the right breast. The patient at this time has no lumps masses or nodules for which she is concerned. She is still taking aromisin. Family history: Mother: Lung cancer Sister: Colon cancer Brother: Testicular cancer, pancreatic cancer Hormonal history: Menarche: 12 , first born at 20, press-fit: Negative Menopause: Hysterectomy 28 did not removal disease, gets hot flashes now, the hysterectomy was done for bleeding Postoperative pros: 1 year Hormones: Negative Surgery: Appendectomy Hysterectomy Cholecystectomy Achilles tendon I surgery muscle tightness Kidney stone Breast biopsy Heart cath Left breast partial mastectomy via mastopexy incision resulting in asymmetry of the breast symmetry procedure of hte right breast Medical history Hypertension Diabetic Anxiety High cholesterol Hyperlipidemia Sleep apnea Social history: Smoking: Negative Alcohol: Occasional Drugs: Negative Review of systems: Constitutional: Night sweats at times, surely worse with the Aromasin HEENT: Negative Breasts: As per HPI Cardiovascular: Hypertension Respiratory: Sleep apnea GI: Negative : MRSA in urine felt to be secondary to kidney stones : Hematuria/kidney stones Menstruation: Reports hysterectomy Musculoskeletal: Arthritis in hips and knees Integument: Negative Neurologic: Negative Psychiatric: Anxiety Objective - Exam BMI 40.7 - Constitutional General appearance: Present: cooperative - EENT Eyes: Present: EOMI ENT: Present: hearing grossly normal - Neck Neck: Present: normal ROM - Respiratory Respiratory: bilateral: CTA - Cardiovascular Rhythm: regular Heart sounds: normal: S1, S2 - Gastrointestinal General gastrointestinal: Present: soft - Integumentary Integumentary: Present: normal turgor - Musculoskeletal Musculoskeletal: Present: gait normal - Psychiatric Psychiatric: Present: A&O x's 3, appropriate affect, intact judgment & insight - Additional findings Additional findings: Breast Exam: BRA: 46D inspection: Bilateral grade 3 ptosis Palpation: Right breast: Multiple positional exam fibrocystic changes no dominant masses or nodules of concern Right axilla: No adenopathy of concern Left breast: Multiple positional exam fibrocystic changes no dominant masses or nodules of concern Left axilla: No adenopathy of concern Patient has bilateral yeast infection under each breast Assessment and Plan Plan: Impression: High risk LCIS left breast Fibrocystic breast changes Fungal infection and drainage breast Recent bilateral mammogram calcifications left breast most likely consistent with fat necrosis repeat in 6 months. Plan: Nystatin under each breast call if this is not resolved Left breast mammogram in 6 months with physician exam at that time Bilateral mammogram in 1 year If patient notes anything of concern she will call us sooner Patient is continuing on Aromasin and she has high risk but breast lesion and following with Dr. Mccarthy CC: Dr. Quintana
== END ==
LOC: WWCWWP 14:56
PROVIDERS: ATTEND Surgery
DX: D05.02 Lobular carcinoma in situ of left breast (principal); N60.11 Diffuse cystic mastopathy of right breast; N60.12 Diffuse cystic mastopathy of left breast; B36.8 Other specified superficial mycoses; R92.1 Mammographic calcification found on diagnostic imaging of breast; I10 Essential (primary) hypertension; E11.9 Type 2 diabetes mellitus without complications; F41.9 Anxiety disorder, unspecified; E78.5 Hyperlipidemia, unspecified; E78.00 Pure hypercholesterolemia, unspecified; Z91.041 Radiographic dye allergy status; Z88.2 Allergy status to sulfonamides; Z88.6 Allergy status to analgesic agent

== ENCOUNTER → 2022-02-04 | Outpatient (CLI) | payer BC ==
--- NOTE | 2022-02-04 10:55 | US ---
EXAMINATION TYPE: US venous doppler duplex LE LT DATE OF EXAM: 02/04/2022 10:28 AM COMPARISON: NONE CLINICAL HISTORY: R60.0 LOCALIZED EDEMA. left foot swelling SIDE PERFORMED: Left TECHNIQUE: The lower extremity deep venous system is examined utilizing real time linear array sonog ameena with graded compression, doppler sonography and color-flow sonography. VESSELS IMAGED: Common Femoral Vein Deep Femoral Vein Greater Saphenous Vein * Femoral Vein Popliteal Vein Small Saphenous Vein * Left Leg: Negative for DVT Grayscale, color doppler, spectral doppler imaging performed of the deep veins of the left lower extr emity. There is normal flow, compressibility, vascular waveforms. IMPRESSION: No ultrasound evidence for acute DVT in the left lower extremity.
== END | disposition home or self-care (01) ==
LOC: RADUSWWP 10:08
PROVIDERS: ATTEND Family Medicine
DX: R60.0 Localized edema (principal)

== ENCOUNTER → 2022-05-20 | Outpatient (CLI) | payer BC ==
[2022-05-20 11:28] VITALS: BP 147/86; PULSE 76; RESP 17; TEMP 98.7
--- NOTE | 2022-05-20 11:34 | P.PN ---
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 This revealed no lesions of concern in the right breast. In the left breast there was architectural distortion in the middle position as well as some calcifications in both breasts which were felt to be benign. She underwent an ultrasound of the left breast. This was performed on 1222. This revealed multiple cystic areas as well a lesion at 10:00 which was a possible intraductal lesion. She was noted to have multiple lymph nodes in the axilla and recommendation was for an ultrasound- guided core biopsy of the lesion of the left breast at 10:00. Ultrasound core biopsy was benign. The lesion however was felt to be discordant after review with Dr. Pool from radiology. The patient was therefore recommended to undergo a needle local excisional resection, /partial mastectomy via crescent mastopexy of this area. This was performed and . This revealed extensive lobular neoplasia, Atypical lobular hyperplasia/lobular carcinoma in situ. No invasive malignancy was identified. The patient had a partial mastectomy for discordant lesion via a crescent mastopexy of the left breast. This has resulted in asymmetry of the nipple location for the right breast. Secondary to the atypical lobular hyperplasia/LCIS the patient was seen by medical oncology. She was started on Aromasin to reduce risk of development of breast cancer. Additionally she had an MRI done of both breasts on 01-17-20 which was benign, showing only a seroma in the left breast. She underwent a crescent mastopexy of the right breast in March 2020. 10-30-21 Bilateral mammogram on 10-26-21 recommend left breast repeat mammogram in 6 months. Changes probably fat necrosis. No lesions of concern in the right breast. The patient at this time has no lumps masses or nodules for which she is concerned. She is still taking aromisin. A left breast mammogram was done on 04-23-22 which was BIRAD 2. She is not concerned about any lumps, masses or nodules in her breast at this time. Family history: Mother: Lung cancer Sister: Colon cancer Brother: Testicular cancer, pancreatic cancer Hormonal history: Menarche: 12 , first born at 20, press-fit: Negative Menopause: Hysterectomy 28 did not removal disease, gets hot flashes now, the hysterectomy was done for bleeding Postoperative pros: 1 year Hormones: Negative Surgery: Appendectomy Hysterectomy Cholecystectomy Achilles tendon I surgery muscle tightness Kidney stone Breast biopsy Heart cath Left breast partial mastectomy via mastopexy incision resulting in asymmetry of the breast symmetry procedure of hte right breast Medical history Hypertension Diabetic Anxiety High cholesterol Hyperlipidemia Sleep apnea Social history: Smoking: Negative Alcohol: Occasional Drugs: Negative Review of systems: Constitutional: Night sweats at times, surely worse with the Aromasin HEENT: Negative Breasts: As per HPI Cardiovascular: Hypertension Respiratory: Sleep apnea GI: Negative : MRSA in urine felt to be secondary to kidney stones : Hematuria/kidney stones Menstruation: Reports hysterectomy Musculoskeletal: Arthritis in hips and knees Integument: Negative Neurologic: Negative Psychiatric: Anxiety Objective - Exam BMI: 39.7 - Constitutional General appearance: Present: cooperative - EENT Eyes: Present: EOMI ENT: Present: hearing grossly normal - Neck Neck: Present: normal ROM - Respiratory Respiratory: bilateral: CTA - Cardiovascular Rhythm: regular Heart sounds: normal: S1, S2 - Gastrointestinal General gastrointestinal: Present: soft - Integumentary Integumentary: Present: normal turgor - Musculoskeletal Musculoskeletal: Present: gait normal - Psychiatric Psychiatric: Present: A&O x's 3, appropriate affect, intact judgment & insight - Additional findings Additional findings: Breast Exam: BRA: 46D Section: Bilateral scars from prior surgery Palpation: Right breast: Multiple positional exam fibrocystic changes no dominant masses or nodules of concern Right axilla: No adenopathy of concern Left breast: Multi-positional exam fibrocystic changes no dominant mass or nodule is of concern Left axilla: No adenopathy of concern Assessment and Plan Assessment: Impression: High risk LCIS patient presently on Aromasin Left breast mammogram [id number] benign BIRADS 2, last bilateral mammogram 10-26-21 Plan: Continue Aromasin Continue to follow with medical oncology Bilateral mammogram October 2022 with physician exam at that time CC: Dr. Quintana
== END ==
LOC: WWCWWP 11:13
PROVIDERS: ATTEND Surgery
DX: D05.02 Lobular carcinoma in situ of left breast (principal); I10 Essential (primary) hypertension; E11.9 Type 2 diabetes mellitus without complications; F41.9 Anxiety disorder, unspecified; E78.00 Pure hypercholesterolemia, unspecified; E78.5 Hyperlipidemia, unspecified; Z79.811 Long term (current) use of aromatase inhibitors; Z91.041 Radiographic dye allergy status; Z88.2 Allergy status to sulfonamides; Z88.6 Allergy status to analgesic agent

== ENCOUNTER → 2022-11-18 | Outpatient (CLI) | payer BC ==
--- NOTE | 2022-11-18 13:40 | MM ---
Reason for Exam: Additional evaluation requested from prior study. Last mammogram was performed 1 year(s) and 1 month(s) ago. Patient History: Menarche at age 11. First Full-Term at age 20. Hysterectomy at age 29. Postmenopausal. Hormonal Contraceptives for 1 year from age 21 until age 22. 10/23/2019, High risk Core Biopsy on the left side. 10/08/2019, Benign Core Biopsy on the left side. 12/29/2007, Benign Cyst Aspiration on the left side. 12/29/2007, Benign Cyst Aspiration on the left side. 05/06/2006, Benign Cyst Aspiration on the left side. 05/06/2006, Benign Cyst Aspiration on the left side. 05/06/2006, Benign Core Biopsy on the left side. Risk Values: Kemi 5 year model risk: 1.9%. NCI Lifetime model risk: 11.4%. Prior Study Comparison: 08/09/2019 Bilateral Screening Mammogram, [facility]. 10/08/2019 Left Diagnostic Mammogram, [facility]. 10/21/2020 Bilateral Diagnostic Mammogram, [facility]. 10/26/2021 Bilateral Screening Mammogram, [facility]. 04/23/2022 Left MG 3D diag mammo w/cad LT, [facility]. Tissue Density: The breast tissue is heterogeneously dense. This may lower the sensitivity of mammography. Findings: Analyzed By CAD. Left breast biopsy clips and stable benign secretions bilaterally. No new suspicious masses, calcifications or distortions. Overall Assessment: Benign, BI-RAD 2 Management: Screening Mammogram of both breasts in 1 year. A clinical breast exam by your physician is recommended on an annual basis and results should be correlated with mammographic findings. This exam should not preclude additional follow-up of suspicious palpable abnormalities. Results were given to the patient verbally at the time of exam. Electronically signed and approved by: Ritesh Randall DO
--- NOTE | 2022-11-18 13:52 | P.PN ---
Subjective Progress Note Date: 11/18/22 Principal diagnosis: left breast LCIS LCIS left breast high risk LCIS Asymmetry of the breast secondary to partial mastectomy dx of lobular carcinoma in situ left breast Yumiko is a 55-year-old white female who had a bilateral screening mammogram performed in August 2019. This revealed no lesions of concern in the right breast. In the left breast there was architectural distortion in the middle position as well as some calcifications in both breasts which were felt to be benign. She underwent an ultrasound of the left breast. This was performed on 1222. This revealed multiple cystic areas as well a lesion at 10:00 which was a possible intraductal lesion. She was noted to have multiple lymph nodes in the axilla and recommendation was for an ultrasound- guided core biopsy of the lesion of the left breast at 10:00. Ultrasound core biopsy was benign. The lesion however was felt to be discordant after review with Dr. Pool from radiology. The patient was therefore recommended to undergo a needle local excisional resection, /partial mastectomy via crescent mastopexy of this area. This was performed on . This revealed extensive lobular neoplasia, Atypical lobular hyperplasia/lobular carcinoma in situ. No invasive malignancy was identified. The patient had a partial mastectomy for discordant lesion via a crescent mastopexy of the left breast. This resulted in asymmetry of the nipple location for the right breast. Secondary to the atypical lobular hyperplasia/LCIS the patient was seen by medical oncology. She was started on Aromasin to reduce risk of development of breast cancer. Additionally she had an MRI done of both breasts on 01-17-20 which was benign, showing only a seroma in the left breast. She underwent a crescent mastopexy of the right breast in March 2020. The patient had a bilateral mammogram on 11-18-22 which was BIRAD 2. She is not complaining of any lumps, masses or nodules in either breast. She is continuing on Aromasin secondary to her high risk of breast cancer secondary to the LCIS. Family history: Mother: Lung cancer Sister: Colon cancer Brother: Testicular cancer, pancreatic cancer Hormonal history: Menarche: 12 , first born at 20, press-fit: Negative Menopause: Hysterectomy 28 did not removal disease, gets hot flashes now, the hysterectomy was done for bleeding Postoperative pros: 1 year Hormones: Negative Surgery: Appendectomy Hysterectomy Cholecystectomy Achilles tendon I surgery muscle tightness Kidney stone Breast biopsy Heart cath Left breast partial mastectomy via mastopexy incision resulting in asymmetry of the breast symmetry procedure of hte right breast Medical history Hypertension Diabetic Anxiety High cholesterol Hyperlipidemia Sleep apnea Social history: Smoking: Negative Alcohol: Occasional Drugs: Negative Review of systems: Constitutional: Night sweats at times, surely worse with the Aromasin HEENT: Negative Breasts: As per HPI Cardiovascular: Hypertension Respiratory: Sleep apnea GI: Negative : MRSA in urine felt to be secondary to kidney stones : Hematuria/kidney stones Menstruation: Reports hysterectomy Musculoskeletal: Arthritis in hips and knees Integument: Negative Neurologic: Negative Psychiatric: Anxiety Objective - Constitutional General appearance: Present: cooperative - EENT Eyes: Present: EOMI ENT: Present: hearing grossly normal - Neck Neck: Present: normal ROM - Respiratory Respiratory: bilateral: CTA - Cardiovascular Rhythm: regular Heart sounds: normal: S1, S2 - Gastrointestinal General gastrointestinal: Present: soft - Integumentary Integumentary: Present: normal turgor - Musculoskeletal Musculoskeletal: Present: gait normal - Psychiatric Psychiatric: Present: A&O x's 3, appropriate affect, intact judgment & insight - Additional findings Additional findings: Breast Exam: BRA: 46D Section: Bilateral scars from prior surgery Palpation: Right breast: Multi positional exam fibrocystic changes no dominant masses or nodules of concern Right axilla: No adenopathy of concern Left breast: Multi-positional exam fibrocystic changes no dominant mass or nodule is of concern Left axilla: No adenopathy of concern Assessment and Plan Assessment: Impression: High risk LCIS patient presently on Aromasin bilateral mammogram 11-18-22 BIRAD 2 Plan: Continue Aromasin Continue to follow with medical oncology Bilateral mammogram November 2023 with physician exam at that time CC: Dr. Quintana
== END | disposition home or self-care (01) ==
LOC: RADMAMWWP 12:49
PROVIDERS: ATTEND Surgery
DX: R92.2 Inconclusive mammogram (principal); E11.9 Type 2 diabetes mellitus without complications; E78.00 Pure hypercholesterolemia, unspecified; I10 Essential (primary) hypertension; Z85.3 Personal history of malignant neoplasm of breast; Z78.0 Asymptomatic menopausal state
CPT/HCPCS: 77062; 77066

== ENCOUNTER → 2022-11-18 | Outpatient (CLI) | payer BC ==
[2022-11-18 13:27] VITALS: BP 160/89; PULSE 78; RESP 18; TEMP 98
== END ==
LOC: WWCWWP 12:48
PROVIDERS: ATTEND Surgery
DX: Z85.3 Personal history of malignant neoplasm of breast (principal); I10 Essential (primary) hypertension; E11.9 Type 2 diabetes mellitus without complications; F41.9 Anxiety disorder, unspecified; E78.00 Pure hypercholesterolemia, unspecified; E78.5 Hyperlipidemia, unspecified; Z80.1 Family history of malignant neoplasm of trachea, bronchus and lung; Z91.041 Radiographic dye allergy status; Z88.2 Allergy status to sulfonamides; Z88.6 Allergy status to analgesic agent

== ENCOUNTER → 2022-11-29 | Outpatient (CLI) | payer BC ==
--- NOTE | 2022-11-29 10:43 | BD ---
EXAMINATION TYPE: Axial Bone Density DATE OF EXAM: 11/29/2022 CLINICAL HISTORY: 57 years old Female. ICD-10 CODE: M81.0 age-related osteoporosis Height: 64 Weight: 200.6 FRAX RISK QUESTIONS: Alcohol (3 or more units per day): no Family History (Parent hip fracture): no Glucocorticoids (More than 3mos): no History of Fracture in Adulthood: no Secondary Osteoporosis: 1. Type 1 Diabetes: no 2. Hyperthyroidism: no 3. Menopause before 45: yes 4. Malnutrition: no 5. Chronic liver disease: no Rheumatoid Arthritis: no Current Tobacco Use: no RISK FACTORS HISTORY OF: Hip Fracture (Right/Left): no Spine Fracture: no History of Wrist Fracture: Lt Wrist When: Age 12 Surgery to Spine/Hip(right/left)/Wrist (right/left): Cervical fusions C4-5-6 When: Age 55 Family History of Osteoporosis: no Active: yes Diet low in dairy products/other sources of calcium: yes Postmenopausal woman: yes Take estrogen and/or progesterone medications: Exemestane hormone julia How long: past 2 years Lost more than 2 inches in height since high school: no Frequent falls: no Poor Health: no Hyperparathyroidism: no Adrenal Insufficiency: no MEDICATIONS: Prednisone or other steroids: no Thyroid Medications: Which medication: Levothyroxine How Long: past 8 years Osteoporosis Medications: no Additional Medications: BP Meds, Cholesterol Meds x2, Cymbalta, metformin, Additional History: EXAM MEASUREMENTS: Bone mineral densitometry was performed using the [employer] System. Bone mineral density as measured about the Lumbar spine is: ----- L1-L4(G/cm2): 1.176 T Score Values are as follows: ----- L1: 0.1 ----- L2: 0.5 ----- L3: -0.2 ----- L4: -0.4 ----- L1-L4: 0.0 Z Score Values are as follows: ----- L1: 0.2 ----- L2: 0.6 ----- L3: -0.1 ----- L4: -0.3 ----- L1-L4: 0.1 Bone mineral density has: decreased -8.2 % since study of: 04/07/2020 Bone mineral density about the R hip (g/cm2): 1.040 Bone mineral density about the L hip (g/cm2): 1.163 T Score values are as follows: -----R Neck: -0.7 -----L Neck: -0.2 -----R Total: 0.3 -----L Total: 1.2 Z Score values are as follows: -----R Neck: -0.1 -----L Neck: 0.4 -----R Total: 0.4 -----L Total: 1.4 Bone mineral density has: decreased -4.8 % since study of: 04/07/2020 FRAX%s: The graph provided illustrates a 5.8% chance for a major osteoporotic fx and a 0.2% chance fo r the hips probability for fx in 10 years time. IMPRESSION: Normal (Values between +1 and -1 indicate normal bone mass). Consider repeating this study in 5 year s or sooner if there is some new clinical indication. NOTE: T-SCORE=SD OF THE YOUNG ADULT MEAN.
== END | disposition home or self-care (01) ==
LOC: RADBDWWP 09:25
PROVIDERS: ATTEND Internal Medicine Hematology & Oncology
DX: D05.02 Lobular carcinoma in situ of left breast (principal); E11.9 Type 2 diabetes mellitus without complications; E78.5 Hyperlipidemia, unspecified; I10 Essential (primary) hypertension; Z78.0 Asymptomatic menopausal state
CPT/HCPCS: 77080

== ENCOUNTER → 2023-11-21 | Outpatient (CLI) | payer BC ==
--- NOTE | 2023-11-23 11:21 | MM ---
Reason for Exam: Screening (asymptomatic). Last screening mammogram was performed 12 month(s) ago. Patient History: Menarche at age 11. First Full-Term at age 20. Hysterectomy at age 29. Postmenopausal. Hormonal Contraceptives for 1 year from age 21 until age 22. 10/23/2019, High risk Core Biopsy on the left side. 10/08/2019, Benign Core Biopsy on the left side. 12/29/2007, Benign Cyst Aspiration on the left side. 12/29/2007, Benign Cyst Aspiration on the left side. 05/06/2006, Benign Cyst Aspiration on the left side. 05/06/2006, Benign Cyst Aspiration on the left side. 05/06/2006, Benign Core Biopsy on the left side. Risk Values: Kemi 5 year model risk: 2.0%. NCI Lifetime model risk: 11.1%. Prior Study Comparison: 10/26/2021 Bilateral Screening Mammogram, [facility]. 04/23/2022 Left MG 3D diag mammo w/cad LT, [facility]. 11/18/2022 Bilateral MG 3D diag mammo w/cad YANET, [facility]. Tissue Density: There are scattered areas of fibroglandular density. Findings: Analyzed By CAD. Left breast surgical clips. There is no suspicious group of microcalcifications or new suspicious mass. Benign-appearing calcifications left breast. Overall Assessment: Negative, BI-RAD 1 Management: Screening Mammogram of both breasts in [address] [facility] will attempt to contact patient to return for supplemental views and ultrasound if indicated. Patient should continue monthly self-breast exams. A clinical breast exam by your physician is recommended on an annual basis. This exam should not preclude additional follow-up of suspicious palpable abnormalities. Note on Kemi scores and lifetime risk: 1. A Kemi score greater than 3% is considered moderate risk. If this is the case, consider specialist referral to assess eligibility for a risk reducing agent. 2. If overall lifetime risk for the development of breast cancer is 20% or higher, the patient may qualify for future screening with alternating mammogram and breast MRI. Electronically signed and approved by: Ritesh Randall DO
== END | disposition home or self-care (01) ==
LOC: RADMAMWWP 08:52
PROVIDERS: ATTEND Surgery
DX: Z12.31 Encounter for screening mammogram for malignant neoplasm of breast (principal); Z78.0 Asymptomatic menopausal state
CPT/HCPCS: 77067

== ENCOUNTER → 2023-12-09 | Outpatient (CLI) | payer BC ==
--- NOTE | 2023-12-09 15:43 | P.PN ---
Subjective Progress Note Date: 12/09/23 Principal diagnosis: ALH/LCIS left breast 201912-09-23 Principal diagnosis: LCIS left breast, 2019 Asymmetry of the breast secondary to partial mastectomy dx of lobular carcinoma in situ left breast Yumiko is a 58-year-old white female who had a bilateral screening mammogram performed in August 2019. This revealed no lesions of concern in the right breast. In the left breast there was architectural distortion in the middle position as well as some calcifications in both breasts which were felt to be benign. She underwent an ultrasound of the left breast. This was performed on 1222. This revealed multiple cystic areas as well a lesion at 10:00 which was a possible intraductal lesion. She was noted to have multiple lymph nodes in the axilla and recommendation was for an ultrasound- guided core biopsy of the lesion of the left breast at 10:00. Ultrasound core biopsy was benign. The lesion however was felt to be discordant after review with Dr. Pool from radiology. The patient was therefore recommended to undergo a needle local excisional resection, /partial mastectomy via crescent mastopexy of this area. This was performed on . This revealed extensive lobular neoplasia, Atypical lobular hyperplasia/lobular carcinoma in situ. No invasive malignancy was identified. The patient had a partial mastectomy for discordant lesion via a crescent mastopexy of the left breast. This resulted in asymmetry of the nipple location for the right breast. Secondary to the atypical lobular hyperplasia/LCIS the patient was seen by medical oncology. She was started on Aromasin to reduce risk of development of breast cancer. Additionally she had an MRI done of both breasts on 01-17-20 which was benign, showing only a seroma in the left breast. She underwent a crescent mastopexy of the right breast in March 2020. The patient had a bilateral mammogram on 11-21-23 which was BIRAD 1 and personally reviewed. She is not complaining of any lumps, masses or nodules in either breast. She is continuing on Aromasin secondary to her high risk of breast cancer secondary to the LCIS. note Dr. Mccarthy reviewed 11-22-23 Family history: Mother: Lung cancer Sister: Colon cancer Brother: Testicular cancer, pancreatic cancer Hormonal history: Menarche: 12 , first born at 20, press-fit: Negative Menopause: Hysterectomy 28 did not removal disease, gets hot flashes now, the hysterectomy was done for bleeding Postoperative pros: 1 year Hormones: Negative Surgery: Appendectomy Hysterectomy Cholecystectomy Achilles tendon I surgery muscle tightness Kidney stone Breast biopsy Heart cath Left breast partial mastectomy via mastopexy incision resulting in asymmetry of the breast symmetry procedure of hte right breast Medical history Hypertension Diabetic Anxiety High cholesterol Hyperlipidemia Sleep apnea Social history: Smoking: Negative Alcohol: Occasional Drugs: Negative Review of systems: Constitutional: Night sweats at times, surely worse with the Aromasin HEENT: Negative Breasts: As per HPI Cardiovascular: Hypertension Respiratory: Sleep apnea GI: Negative : MRSA in urine felt to be secondary to kidney stones : Hematuria/kidney stones Menstruation: Reports hysterectomy Musculoskeletal: Arthritis in hips and knees Integument: Negative Neurologic: Negative Psychiatric: Anxiety Objective - Vital Signs Vital signs: Intake & Output 12/08/23 12/09/23 12/09/23 18:59 06:59 18:59 Weight 77.111 kg - Constitutional General appearance: Present: cooperative - EENT Eyes: Present: EOMI ENT: Present: hearing grossly normal - Neck Neck: Present: normal ROM - Respiratory Respiratory: bilateral: CTA - Cardiovascular Rhythm: regular Heart sounds: normal: S1, S2 - Gastrointestinal General gastrointestinal: Present: soft - Integumentary Integumentary: Present: normal turgor - Musculoskeletal Musculoskeletal: Present: gait normal - Psychiatric Psychiatric: Present: A&O x's 3, appropriate affect, intact judgment & insight - Additional findings Additional findings: Breast Exam: BRA: 46D Section: Bilateral scars from prior surgery Palpation: Right breast: Multi positional exam fibrocystic changes no dominant masses or nodules of concern Right axilla: No adenopathy of concern Left breast: Multi-positional exam fibrocystic changes no dominant mass or nodule is of concern Left axilla: No adenopathy of concern fungal infection under both breast Assessment and Plan Assessment: Impression: High risk LCIS patient presently on Aromasin bilateral mammogram 11-21-23 BIRAD 1 fungal infection under both breast Plan: Continue Aromasin Continue to follow with medical oncology Bilateral mammogram November 2024 with physician exam at that time nystatin under both breast CC: Dr. Quintana
[2023-12-09 16:12] VITALS: BP 121/74; PULSE 94; RESP 17; TEMP 97.8
== END ==
LOC: WWCWWP 14:51
PROVIDERS: ATTEND Surgery
DX: N60.92 Unspecified benign mammary dysplasia of left breast (principal); N64.89 Other specified disorders of breast; R92.1 Mammographic calcification found on diagnostic imaging of breast; C50.912 Malignant neoplasm of unspecified site of left female breast; L76.82 Other postprocedural complications of skin and subcutaneous tissue; B99.8 Other infectious disease; Z91.041 Radiographic dye allergy status; Z88.2 Allergy status to sulfonamides; Z88.1 Allergy status to other antibiotic agents; Z88.8 Allergy status to other drugs, medicaments and biological substances

== ENCOUNTER → 2024-07-19 | Outpatient (CLI) | payer BC ==
[2024-07-19 11:25] VITALS: BP 148/83; PULSE 83; RESP 18; TEMP 98.1
--- NOTE | 2024-07-19 11:42 | P.PN ---
Subjective Progress Note Date: 07/19/[address] [facility]/LCIS left breast 201907-19-24 Principal diagnosis: LCIS left breast, 2019 Asymmetry of the breast secondary to partial mastectomy dx of lobular carcinoma in situ left breast Yumiko is a 59-year-old white female who had a bilateral screening mammogram performed in August 2019. This revealed no lesions of concern in the right breast. In the left breast there was architectural distortion in the middle position as well as some calcifications in both breasts which were felt to be benign. She underwent an ultrasound of the left breast. This was performed on 1222. This revealed multiple cystic areas as well a lesion at 10:00 which was a possible intraductal lesion. She was noted to have multiple lymph nodes in the axilla and recommendation was for an ultrasound- guided core biopsy of the lesion of the left breast at 10:00. Ultrasound core biopsy was benign. The lesion however was felt to be discordant after review with Dr. Pool from radiology. The patient was therefore recommended to undergo a needle local excisional resection, /partial mastectomy via crescent mastopexy of this area. This was performed on . This revealed extensive lobular neoplasia, Atypical lobular hyperplasia/lobular carcinoma in situ. No invasive malignancy was identified. The patient had a partial mastectomy for discordant lesion via a crescent mastopexy of the left breast. This resulted in asymmetry of the nipple location for the right breast. Secondary to the atypical lobular hyperplasia/LCIS the patient was seen by medical oncology. She was started on Aromasin to reduce risk of development of breast cancer. Additionally she had an MRI done of both breasts on 01-17-20 which was benign, showing only a seroma in the left breast. She underwent a crescent mastopexy of the right breast in March 2020. The patient had a bilateral mammogram on 11-21-23 which was BIRAD 1 and personally reviewed on 12-09-23. She is continuing on Aromasin secondary to her high risk of breast cancer secondary to the LCIS. She is complaining of a lump in her left breast. This was noted two weeks ago. She has lost 75 pounds and has noted some changes in her breast. No lumps in her right breast. note Dr. Mccarthy reviewed 11-22-23 continue aromisin Family history: Mother: Lung cancer Sister: Colon cancer Brother: Testicular cancer, pancreatic cancer Hormonal history: Menarche: 12 , first born at 20, press-fit: Negative Menopause: Hysterectomy 28 did not removal disease, gets hot flashes now, the hysterectomy was done for bleeding Postoperative pros: 1 year Hormones: Negative Surgery: Appendectomy Hysterectomy Cholecystectomy Achilles tendon I surgery muscle tightness Kidney stone Breast biopsy Heart cath Left breast partial mastectomy via mastopexy incision resulting in asymmetry of the breast symmetry procedure of hte right breast Medical history Hypertension Diabetic Anxiety High cholesterol Hyperlipidemia Sleep apnea Social history: Smoking: Negative Alcohol: Occasional Drugs: Negative Review of systems: Constitutional: Night sweats at times, surely worse with the Aromasin HEENT: Negative Breasts: As per HPI Cardiovascular: Hypertension Respiratory: Sleep apnea GI: Negative : MRSA in urine felt to be secondary to kidney stones : Hematuria/kidney stones Menstruation: Reports hysterectomy Musculoskeletal: Arthritis in hips and knees Integument: Negative Neurologic: Negative Psychiatric: Anxiety Objective - Vital Signs Vital signs: Vital Signs Temp 98.1 F 07/19/24 11:20 Pulse 83 07/19/24 11:20 Resp 18 07/19/24 11:20 BP 148/83 07/19/24 11:20 Pulse Ox 99 07/19/24 11:20 FiO2 Intake & Output 07/18/24 07/19/24 07/19/24 18:59 06:59 18:59 Weight 71.214 kg - Constitutional General appearance: Present: cooperative - EENT Eyes: Present: EOMI ENT: Present: hearing grossly normal - Neck Neck: Present: normal ROM - Respiratory Respiratory: bilateral: CTA - Cardiovascular Rhythm: regular Heart sounds: normal: S1, S2 - Integumentary Integumentary: Present: normal turgor - Musculoskeletal Musculoskeletal: Present: gait normal - Psychiatric Psychiatric: Present: A&O x's 3, appropriate affect, intact judgment & insight - Additional findings Additional findings: Breast Exam: BRA: 46D Section: Bilateral scars from prior surgery Palpation: Right breast: Multi positional exam fibrocystic changes no dominant masses or nodules of concern Right axilla: No adenopathy of concern Left breast: Multi-positional exam fibrocystic changes, approximately 7 mm area of increased nodularity in the left breast in the periareolar region Left axilla: No adenopathy of concern fungal infection under both breast Assessment and Plan Assessment: Impression: High risk LCIS patient presently on Aromasin bilateral mammogram 3-18-24 BIRAD 1 fungal infection under both breast resolved Plan: Continue Aromasin Continue to follow with medical oncology Bilateral mammogram November 2024 with physician exam at that time Palpable mass left breast in the operating room Risk and benefits of the procedure discussed with the patient. Risk include but are not limited to bleeding, infection, reaction to the anesthetic. The patient and her family understand and wish to proceed. Breast needle biopsy however secondary to the superficial nature of the lesion it is felt that this would be very difficult to perform and the patient would like to have this removed. CC: Dr. Quintana
== END ==
LOC: WWCWWP 10:53
PROVIDERS: ATTEND Surgery
DX: N63.20 Unspecified lump in the left breast, unspecified quadrant (principal); R92.8 Other abnormal and inconclusive findings on diagnostic imaging of breast; D05.02 Lobular carcinoma in situ of left breast; R92.1 Mammographic calcification found on diagnostic imaging of breast; N60.19 Diffuse cystic mastopathy of unspecified breast; R59.9 Enlarged lymph nodes, unspecified; Z90.12 Acquired absence of left breast and nipple; Z88.2 Allergy status to sulfonamides; Z88.8 Allergy status to other drugs, medicaments and biological substances; Z88.6 Allergy status to analgesic agent; Z88.1 Allergy status to other antibiotic agents

== ENCOUNTER 2024-08-07 09:24 | Day surgery (SDC) | payer BC ==
[~2024-08-07 09:24] MED LIST changes: +HYDROmorphone 0.5 MG/0.5 ML SYRINGE IVP PRN; -LIDOCAINE 1% (10MG/ML) FOR IV START INTRADERMA PRN; -ONDANSETRON 4 MG/2 ML VIAL IVP ONE; -SCOPOLAMINE 1.5MG/72HR PATCH TRANSDERM ONE; -ceFAZolin 1,000 MG in SODIUM CHLORIDE 0.9% IRRIGATIO 1,000 ML IRRIGATION PRN
[2024-08-07] MEDS: IV FLUID CONTINUATION 1,000 ML IV ONE (10:23)
[2024-08-07 10:46] LABS: Glucose,Whole Blood 102 mg/dL (70-110)
[2024-08-07 10:53] LABS: Basophils % (A) 1 %; Eosinophils # (A) 0.1 k/uL (0-0.7); Eosinophils % (A) 2 %; HCT 42.1 % (34.0-46.0); HGB 13.9 gm/dL (11.4-16.0); Lymphocytes % (A) 34 %; MCV 87.8 fL (80.0-100.0); Mean Platelet Volume 7.3; Monocytes # (A) 0.3 k/uL (0-1.0); Monocytes % (A) 4 %; Neutrophils # (A) 3.4 k/uL (1.3-7.7); Neutrophils % (A) 57 %; Platelet Count 289 k/uL (150-450); RBC 4.79 m/uL (3.80-5.40); RDW 13.4 % (11.5-15.5)
[2024-08-07] MEDS: ACETAMINOPHEN TAB 500 MG TAB PO PRN (10:57)
[2024-08-07] MEDS: LACTATED RINGERS 1,000 ML IV SCH (10:57)
[2024-08-07] MEDS: HEPARIN SODIUM,PORCINE 5,000 UNIT/ML 1 ML VIAL SQ PRN (10:58)
[2024-08-07] MEDS: DEXAMETHASONE SOD PHOSPHATE 4 MG/ML 1 ML VIAL IV ONE (10:58)
[2024-08-07] MEDS: ONDANSETRON 4 MG/2 ML VIAL IVP ONE (10:58)
[2024-08-07] MEDS: FAMOTIDINE 20 MG/2 ML VIAL IV STA (10:59)
[2024-08-07 11:15] LABS: ALT 17 U/L (4-34); AST 23 U/L (14-36); African American GFR (CKD) 84 (>60 ml/min/1.73 sqM); Albumin 4.7 g/dL (3.5-5.0); Alkaline Phosphatase 60 U/L (38-126); Anion Gap 9 mmol/L; Blood Urea Nitrogen 15 mg/dL (7-17); Carbon Dioxide 26 mmol/L (22-30); Chloride 103 mmol/L (98-107); Glucose 106 mg/dL (74-99); Non-African American GFR(CKD) 73 (>60 ml/min/1.73 sqM); Potassium 4.6 mmol/L (3.5-5.1); Sodium 138 mmol/L (137-145); Total Bilirubin 0.8 mg/dL (0.2-1.3); Total Protein 7.4 g/dL (6.3-8.2)
[2024-08-07] MEDS ORDERED: PHENYLEPHRINE-0.9% NACL SYG 1,000 MCG/10 ML SYRINGE ONE (12:55)
[2024-08-07] MEDS ORDERED: PROPOFOL 10 MG/ML 20 ML VIAL IV ONE (12:55)
[2024-08-07] MEDS ORDERED: fentaNYL (PF) 50 MCG/ML 2 ML AMP ONE (12:55)
[2024-08-07] MEDS ORDERED: LIDOCAINE 1% INJ 10MG/ML (20 ML MDV) ONE (12:55)
[2024-08-07] MEDS: LIDOCAINE 1% INJ 10MG/ML (20 ML MDV) SQ ONE (13:19)
--- NOTE | 2024-08-07 13:39 | P.BCAON ---
Date of Procedure: 08/07/24 Preoperative Diagnosis: Mass left breast Postoperative Diagnosis: Same Procedure(s) Performed: Excisional biopsy mass left breast Anesthesia: SHIRIN Surgeon: Mary Casas Estimated Blood Loss (ml): 5 IV fluids (ml): 400 Pathology: other (Breast tissue) Condition: stable Disposition: same day Indications for Procedure: Mass left breast Operative Findings: Firm mass left breast approximately 1 cm in size Description of Procedure: The patient was brought to the operative suite. Following induction of anesthesia the left breast was prepped and draped in a sterile fashion. A periareolar incision was made and carried down to the palpable abnormality. The lesion was approximately 8 mm and somewhat circumscribed in size. Wide excision was performed. The specimen was painted for orientation. After we are sure that hemostasis was attained the wound was well irrigated. Surgicel in powder form was placed. The deep tissues were closed using 3-0 Vicryl suture. This was followed by closure of the skin with 4-0 Monocryl. Surgical glue was placed. Prior to this 10 cc of 1% lidocaine were injected into the area. The patient tolerated the procedure in stable condition. All instrument and sponge counts were correct at the end of the case.
[2024-08-07 14:05] VITALS: TEMP 97.4
[2024-08-07 14:59] VITALS: RESP 16
[2024-08-07 15:12] VITALS: BP 159/69; PULSE 81
[2024-08-07 15:18] LABS: Glucose,Whole Blood 129 mg/dL (70-110)
== END 2024-08-07 15:30 | disposition home or self-care (01) ==
LOC: OR 09:24
PROVIDERS: ATTEND Surgery
DX: D05.02 Lobular carcinoma in situ of left breast (principal); N60.82 Other benign mammary dysplasias of left breast; N60.22 Fibroadenosis of left breast; N60.12 Diffuse cystic mastopathy of left breast; N64.1 Fat necrosis of breast; L90.5 Scar conditions and fibrosis of skin; I10 Essential (primary) hypertension; E11.9 Type 2 diabetes mellitus without complications; E78.2 Mixed hyperlipidemia; I25.10 Atherosclerotic heart disease of native coronary artery without angina pectoris; I65.23 Occlusion and stenosis of bilateral carotid arteries; G47.33 Obstructive sleep apnea (adult) (pediatric); F41.9 Anxiety disorder, unspecified; Z87.891 Personal history of nicotine dependence; Z79.84 Long term (current) use of oral hypoglycemic drugs; Z79.85 Long-term (current) use of injectable non-insulin antidiabetic drugs; Z79.890 Hormone replacement therapy; Z79.899 Other long term (current) drug therapy; Z88.8 Allergy status to other drugs, medicaments and biological substances; Z95.5 Presence of coronary angioplasty implant and graft; Z88.2 Allergy status to sulfonamides; Z88.5 Allergy status to narcotic agent; Z90.710 Acquired absence of both cervix and uterus; Z90.49 Acquired absence of other specified parts of digestive tract; Z98.890 Other specified postprocedural states; Z88.6 Allergy status to analgesic agent; Z91.041 Radiographic dye allergy status; Z82.49 Family history of ischemic heart disease and other diseases of the circulatory system
CPT/HCPCS: 19120; 80053; 85025; 88307; J1644; J1100; J0690; J2405; J2003; J3010; J3490; J2704; J2371

== ENCOUNTER → 2024-08-17 | Outpatient (CLI) | payer BC ==
[2024-08-17 08:47] VITALS: BP 127/73; PULSE 94; RESP 17; TEMP 97.9
--- NOTE | 2024-08-17 09:25 | P.BCPO ---
Progress Note - Text Progress Note Date: 08/17/24 LCIS left breast, 2020/biopsy 08-07-24 KEVIN Calderon is a 59 year old with a history of left breast ALH/LCIS in 2019. She has been on aromisin and developed a lump in the left breast. Bilateral mammogram on 11-21-23 BIRAD 1 She was complaining of a lump in her left breast. She had lost 75 pounds and has noted some changes in her breast. No lumps in her right breast. note Dr. Mccarthy reviewed 11-22-23 on aromisin palpable mass removed in the left breast 08-08-24 ALH/LCIS , lesion 4 by 3.5 cm Exam: lungs: clear heart: RRR incision: clean and dry Assessment and Plan Assessment: Impression: High risk LCIS patient presently on Aromasin bilateral mammogram 11-21-23 BIRAD 1 fungal infection under both breast resolved pathology ALH/LCIS while on aromisin Plan: Continue Aromasin Continue to follow with medical oncology genetic testing present at tumor board Sep 11, then follow up here breast MRI now patient is considering prophylactic mastectomy, appointment with Dr. Whalen prior to next visit CC: Dr. Quintana
== END ==
LOC: WWCWWP 08:19
PROVIDERS: ATTEND Surgery
DX: R92.8 Other abnormal and inconclusive findings on diagnostic imaging of breast (principal); N63.20 Unspecified lump in the left breast, unspecified quadrant; Z91.041 Radiographic dye allergy status; Z88.2 Allergy status to sulfonamides; Z88.1 Allergy status to other antibiotic agents; Z88.8 Allergy status to other drugs, medicaments and biological substances

== ENCOUNTER → 2024-08-18 | Outpatient (CLI) | payer BC ==
--- NOTE | 2024-08-21 07:41 | BMR ---
EXAM DATE: 08/18/2024 EXAM DESCRIPTION: MRI-Breast Bilat (W/WO Contrast) INDICATION: HGSIL left breast with excisional biopsy and lumpectomy and nipple lift COMPARISON: PRIOR MRIs: None available. Correlation to mammograms: 11/18/2022, 04/23/2022. Correlation to ultrasound: None available. CONTRAST: 7 cc Gadavist IV gadolinium contrast TECHNIQUE: Multiplanar multisequence MR imaging of both breasts was performed with a dedicated breast coil. Images were obtained before and after administration of IV gadolinium, using the standard breast mass protocol. Computer aided detection was utilized for interpretation. FINDINGS: LMP: Postmenopausal General breast composition: There are scattered areas of fibroglandular tissue Background parenchymal enhancement: Minimal RIGHT BREAST: The T2 weighted series shows no areas of abnormal signal intensity. Review of the dynamic series shows no early or abnormal enhancement. LEFT BREAST: There is a 7.2 x 4.4 x 4.3 cm seroma in the left breast 12 o'clock with fluid fluid level. Peripheral enhancement demonstrates persistent washout kinetics. There is a more nodular area along the anterolateral aspect, 2 cm from the nipple. No additional suspicious enhancement in the breast. LYMPH NODES: There is no evidence of internal mammary or axillary adenopathy. Prominent lymph nodes appear stable as compared to prior mammogram of 10/21/2020 and are considered benign IMPRESSION: RIGHT BREAST: No MR evidence of malignancy. LEFT BREAST: 7.2 cm presumed seroma in the left breast. Peripheral enhancement with more nodular aspect along the anterolateral aspect likely represents postsurgical state, however please correlate with excision margin pathology report. If there is a specific area of clinical concern, reassessment can be performed with addendum. OVERALL ASSESSMENT -- BI-RADS 2: Benign MTDD
== END | disposition home or self-care (01) ==
LOC: RADMRIMAIN 07:26
PROVIDERS: ATTEND Surgery
DX: D05.02 Lobular carcinoma in situ of left breast (principal)
CPT/HCPCS: 77049; A9585

== ENCOUNTER 2024-11-20 06:48 | Day surgery (SDC) | payer BC ==
[2024-11-16 14:33] VITALS: BMI 26.5
[~2024-11-20 06:48] MED LIST changes: -HYDROmorphone 0.5 MG/0.5 ML SYRINGE IVP PRN; +LACTATED RINGERS 1,000 ML IV SCH
[2024-11-20] MEDS: IV FLUID CONTINUATION 1,000 ML IV ONE (07:01)
[2024-11-20 07:25] VITALS: TEMP 98.2
[2024-11-20 07:26] LABS: Glucose,Whole Blood 109 mg/dL (70-110)
[2024-11-20] MEDS ORDERED: PROPOFOL 10 MG/ML 20 ML VIAL IV ONE (07:38)
--- NOTE | 2024-11-20 08:10 | P.PCN ---
Date of Procedure: 11/20/24 Procedure(s) Performed: BRIEF HISTORY: Patient is 59-year-old pleasant white male scheduled for an elective colonoscopy as a part of screening for prior history of colon polyps PROCEDURE PERFORMED: Colonoscopy with snare polypectomy. PREOPERATIVE DIAGNOSIS: Screening for prior history of colon polyp. IV sedation per Anesthesia. PROCEDURE: After informed consent was obtained, the patient, was brought into the endoscopy unit. IV sedation was administered by Anesthesia under continuous monitoring. Digital rectal examination was normal. Initially the Olympus CF-160 flexible video colonoscope was then inserted in the rectum, gradually advanced into the cecum without any difficulty. Careful examination was performed as the scope was gradually being withdrawn. Ileocecal valve and the appendiceal orifice were visualized and appeared normal. Prep was poor in several areas of the colon. Thorough irrigation was performed mucosa of the cecum, ascending colon, transverse colon, descending colon, sigmoid colon, and rectum appeared normal. Retroflexion was performed in the rectum and no lesions were seen. The patient tolerated the procedure well. IMPRESSION: 1 cm ascending colon polyp status post polypectomy Poor prep in several areas of the colon RECOMMENDATIONS: Findings of this examination were discussed with the patient as well as her family. She was advised to follow with the biopsy results. The biopsy reveals adenoma she can have repeat colonoscopy in 3 years.
[2024-11-20 08:39] VITALS: BP 137/78; PULSE 72; RESP 18
== END 2024-11-20 08:50 | disposition home or self-care (01) ==
LOC: ORWHC2ENDO 06:48
PROVIDERS: ATTEND Internal Medicine Gastroenterology
DX: Z12.11 Encounter for screening for malignant neoplasm of colon (principal); D12.2 Benign neoplasm of ascending colon; I10 Essential (primary) hypertension; I25.10 Atherosclerotic heart disease of native coronary artery without angina pectoris; E11.9 Type 2 diabetes mellitus without complications; E78.5 Hyperlipidemia, unspecified; F41.9 Anxiety disorder, unspecified; Z79.82 Long term (current) use of aspirin; Z79.890 Hormone replacement therapy; Z79.811 Long term (current) use of aromatase inhibitors; Z79.899 Other long term (current) drug therapy; Z86.0100 Personal history of colon polyps, unspecified; Z88.2 Allergy status to sulfonamides; Z88.8 Allergy status to other drugs, medicaments and biological substances; Z88.6 Allergy status to analgesic agent; Z91.041 Radiographic dye allergy status
CPT/HCPCS: 45385; 88305; J2704

== ENCOUNTER → 2024-11-21 | Outpatient (CLI) | payer BC ==
--- NOTE | 2024-11-21 10:30 | MM ---
Reason for Exam: Screening (asymptomatic). Last screening mammogram was performed 12 month(s) ago. Patient History: Menarche at age 11. First Full-Term at age 20. Hysterectomy at age 29. Postmenopausal. Hormonal Contraceptives for 1 year from age 21 until age 22. 10/23/2019, High risk Core Biopsy on the left side. 10/08/2019, Benign Core Biopsy on the left side. 12/29/2007, Benign Cyst Aspiration on the left side. 12/29/2007, Benign Cyst Aspiration on the left side. 05/06/2006, Benign Cyst Aspiration on the left side. 05/06/2006, Benign Cyst Aspiration on the left side. 05/06/2006, Benign Core Biopsy on the left side. Risk Values: Kemi 5 year model risk: 2.0%. NCI Lifetime model risk: 10.9%. Prior Study Comparison: 04/23/2022 Left MG 3D diag mammo w/cad [facility], [facility]. 11/18/2022 Bilateral MG 3D diag mammo w/cad [facility], [facility]. 11/21/2023 Bilateral MG screening mammo w CAD, [facility]. Tissue Density: The breasts are heterogeneously dense, which may obscure small masses. Findings: Analyzed By CAD. Surgical changes in the left breast are redemonstrated. Benign-appearing bilateral axillary lymph nodes are again seen. Occasional scattered benign-appearing round calcifications bilaterally redemonstrated. At site of prior surgical clips and dystrophic calcification there is new distortion. Note is made of interval excisional biopsy at this level and subsequent MRI August 18, 2024 BI-RADS 2.Surgical changes in the left breast are redemonstrated. Benign-appearing bilateral axillary lymph nodes are again seen. Occasional scattered benign-appearing round calcifications bilaterally redemonstrated. At site of prior surgical clips and dystrophic calcification there is new distortion. Note is made of interval excisional biopsy at this level and subsequent MRI August 18, 2024 BI-RADS 2. There is 3.5 cm focal asymmetric density at this level noted. Overall Assessment: Incomplete: need additional imaging evaluation, BI-RAD 0 Management: Diagnostic Breast Ultrasound of the right breast. Targeted ultrasound right breast. Reassess area of concern on MRI. Some advise annual bilateral breast ultrasound surveillance in patient with background dense tissue. Patient should continue monthly self-breast exams. A clinical breast exam by your physician is recommended on an annual basis. This exam should not preclude additional follow-up of suspicious palpable abnormalities. Note on Kemi scores and lifetime risk: 1. A Kemi score greater than 3% is considered moderate risk. If this is the case, consider specialist referral to assess eligibility for a risk reducing agent. 2. If overall lifetime risk for the development of breast cancer is 20% or higher, the patient may qualify for future screening with alternating mammogram and breast MRI. [facility], , 11/21/2024 10:27 AM. Electronically signed and approved by: Jhony Ledbetter M.D.
== END | disposition home or self-care (01) ==
LOC: RADMAMWWP 09:48
PROVIDERS: ATTEND Surgery
DX: Z12.31 Encounter for screening mammogram for malignant neoplasm of breast (principal); R92.333 Mammographic heterogeneous density, bilateral breasts; Z78.0 Asymptomatic menopausal state
CPT/HCPCS: 77063; 77067

== ENCOUNTER → 2024-11-26 | Outpatient (CLI) | payer BC | END | disposition home or self-care (01) | LOC: RADUSWWP 15:22 | PROVIDERS: ATTEND Surgery | DX: Z53.9 Procedure and treatment not carried out, unspecified reason (principal) ==

== ENCOUNTER → 2024-11-29 | Outpatient (CLI) | payer BC ==
--- NOTE | 2024-11-29 10:05 | USB ---
Reason for Exam: Additional evaluation requested from prior study. Patient History: Menarche at age 11. First Full-Term at age 20. Hysterectomy at age 29. Postmenopausal. Hormonal Contraceptives for 1 year from age 21 until age 22. 10/23/2019, High risk Core Biopsy on the left side. 10/08/2019, Benign Core Biopsy on the left side. 12/29/2007, Benign Cyst Aspiration on the left side. 12/29/2007, Benign Cyst Aspiration on the left side. 05/06/2006, Benign Cyst Aspiration on the left side. 05/06/2006, Benign Cyst Aspiration on the left side. 05/06/2006, Benign Core Biopsy on the left side. Risk Values: Kemi 5 year model risk: 2.0%. NCI Lifetime model risk: 10.9%. Technique: Method: Targeted. Prior Study Comparison: 11/18/2022 Bilateral MG 3D diag mammo w/cad [facility], [facility]. 11/21/2023 Bilateral MG screening mammo w CAD, [facility]. 11/21/2024 Bilateral MG 3D screening mammo w/cad, [facility]. Findings: The axilla of the left breast and the retroareolar of the left breast were scanned. A targeted US of retro-areolar region were reviewed. Referring physician requested left breast targeted ultrasound only. There is fluid collection in the region is adjacent tissue. Appears to correspond to the area of abnormal density on ultrasound. Most likely related to a seroma. Overall Assessment: Probably benign, BI-RAD 3 Management: Diagnostic Breast Ultrasound of the left breast in 3 months. A clinical breast exam by your physician is recommended on an annual basis and results should be correlated with mammographic findings. This exam should not preclude additional follow-up of suspicious palpable abnormalities. Results were given to the patient verbally at the time of exam. [facility], , 11/29/2024 10:01 AM. Electronically signed and approved by: Yandel Villalobos M.D. [facility]
== END | disposition home or self-care (01) ==
LOC: RADUSWWP 09:10
PROVIDERS: ATTEND Surgery
DX: N60.02 Solitary cyst of left breast (principal); Z78.0 Asymptomatic menopausal state

== ENCOUNTER → 2024-11-29 | Outpatient (CLI) | payer BC ==
[2024-11-29 09:00] VITALS: BP 118/70; PULSE 79; RESP 17; TEMP 97.1
--- NOTE | 2024-11-29 10:18 | P.PN ---
Subjective Progress Note Date: 11/29/24 Principal diagnosis: LCIS left breast Subjective Progress Note Date: 11-29-24 AL/LCIS left breast [id number] LCIS left breast, 2019; LCIS left breast 2023 biopsy Asymmetry of the breast secondary to partial mastectomy dx of lobular carcinoma in situ left breast Yumiko is a 59-year-old white female who had a bilateral screening mammogram performed in August 2019. This revealed no lesions of concern in the right breast. In the left breast there was architectural distortion in the middle position as well as some calcifications in both breasts which were felt to be benign. She underwent an ultrasound of the left breast. This was performed on 1222. This revealed multiple cystic areas as well a lesion at 10:00 which was a possible intraductal lesion. She was noted to have multip le lymph nodes in the axilla and recommendation was for an ultrasound-guided core biopsy of the lesion of the left breast at 10:00. Ultrasound core biopsy was benign. The lesion however was felt to be discordant after review with Dr. Pool from radiology. The patient was therefore recommended to undergo a needle local excisional resection, /partial mastectomy via crescent mastopexy of this area. This was performed on . This revealed extensive lobular neoplasia, Atypical lobular hyperplasia/lobular carcinoma in situ. No invasive malignancy was identified. The patient had a partial mastectomy for discordant lesion via a crescent mastopexy of the left breast. This resulted in asymmetry of the nipple location for the right breast. Secondary to the atypical lobular hyperplasia/LCIS the patient was seen by medical oncology. She was started on Aromasin to reduce risk of development of breast cancer. Additionally she had an MRI done of both breasts on 01-17-20 which was benign, showing only a seroma in the left breast. She underwent a crescent mastopexy of the right breast in March 2020. The patient had a bilateral mammogram on 11-21-23 which was BIRAD 1 and personal ly reviewed on 12-09-23. She is continuing on Aromasin secondary to her high risk of breast cancer secondary to the LCIS. patient on 08-07-24 underwent excision of palpable lesion left breast in the OR; LCIS/ all margins benign bilateral mammogram on 11-21-24 led to a left breast ultrasound, which was BIRAD 3 repeat ultrasound in 3 months this was personally reviewed with Dr. Daniella steel Dr. Mccarthy 09-25-24 continue aromisin bilateral MRI 08-28-24 margin of lumpectomy site left breast felt to have post- surgical change; followed with an ultrasound Genetic testing performed on September 14, 2024 results negative Family history: Mother: Lung cancer Sister: Colon cancer Brother: Testicular cancer, pancreatic cancer second cousin with breast cancer at 25 Hormonal history: Menarche: 12 , first born at 20, press-fit: Negative Menopause: Hysterectomy 28 did not removal disease, gets hot flashes now, the hysterectomy was done for bleeding Postoperative pros: 1 year Hormones: Negative Surgery: Appendectomy Hysterectomy Cholecystectomy Achilles tendon I surgery muscle tightness Kidney stone Breast biopsy Heart cath Left breast partial mastectomy via mastopexy incision resulting in asymmetry of the breast symmetry procedure of hte right breast Medical history Hypertension Diabetic Anxiety High cholesterol Hyperlipidemia Sleep apnea Social history: Smoking: Negative Alcohol: Occasional Drugs: Negative Review of systems: Constitutional: Night sweats at times, surely worse with the Aromasin HEENT: Negative Breasts: As per HPI Cardiovascular: Hypertension Respiratory: Sleep apnea GI: Negative : MRSA in urine felt to be secondary to kidney stones : Hematuria/kidney stones Menstruation: Reports hysterectomy Musculoskeletal: Arthritis in hips and knees Integument: Negative Neurologic: Negative Psychiatric: Anxiety Objective - Vital Signs Vital signs: Vital Signs Temp 97.1 F L 11/29/24 08:58 Pulse 79 11/29/24 08:58 Resp 17 11/29/24 08:58 BP 118/70 11/29/24 08:58 Pulse Ox 99 11/29/24 08:58 FiO2 Intake & Output 11/28/24 11/29/24 11/29/24 18:59 06:59 18:59 Weight 67.585 kg - Constitutional General appearance: Present: cooperative - EENT Eyes: Present: EOMI ENT: Present: hearing grossly normal - Neck Neck: Present: normal ROM - Respiratory Respiratory: bilateral: CTA - Cardiovascular Rhythm: regular Heart sounds: normal: S1, S2 - Integumentary Integumentary: Present: normal turgor - Musculoskeletal Musculoskeletal: Present: gait normal - Psychiatric Psychiatric: Present: A&O x's 3, appropriate affect, intact judgment & insight - Additional findings Additional findings: Breast Exam: BRA: 46D Section: Bilateral scars from prior surgery Palpation: Right breast: Multi positional exam fibrocystic changes no dominant masses or nodules of concern Right axilla: No adenopathy of concern Left breast: Multi-positional exam fibrocystic changes, no dominate masses or nodule of concern Left axilla: No adenopathy of concern fungal infection under both breast Assessment and Plan Assessment: Impression: High risk LCIS patient presently on Aromasin bilateral mammogram 11-21-23 BIRAD 1 Plan: Continue Aromasin Continue to follow with medical oncology breast MRI and left breast ultrasound three months with appointment at that time CC: Dr. Quintana
== END ==
LOC: WWCWWP 08:36
PROVIDERS: ATTEND Surgery
DX: Z12.31 Encounter for screening mammogram for malignant neoplasm of breast (principal); N60.92 Unspecified benign mammary dysplasia of left breast; N64.89 Other specified disorders of breast; Z91.041 Radiographic dye allergy status; Z88.2 Allergy status to sulfonamides; Z88.8 Allergy status to other drugs, medicaments and biological substances

== ENCOUNTER → 2024-11-30 | Outpatient (CLI) | payer BC ==
--- NOTE | 2024-11-30 12:38 | BD ---
EXAMINATION TYPE: Axial Bone Density DATE OF EXAM: 11/30/2024 CLINICAL HISTORY: 59 years old Female. ICD-10 CODE: M81.0AGE-RELATED OSTEOPOROSIS W/O CURRENT PATHOL OGY , Additional History: Height: 64 Weight: 152 FRAX RISK QUESTIONS: Family History (Parent hip fracture): no History of Fracture in Adulthood: no Secondary Osteoporosis: yes 3. Menopause before 45: yes RISK FACTORS HISTORY OF: Surgery to Spine/Hip(right/left)/Wrist (right/left): no MEDICATIONS: Thyroid Medications: yes Which medication: Levothyroxine How Lon+ years Osteoporosis Medications: no EXAM MEASUREMENTS: Bone mineral densitometry was performed using the [employer]. Bone mineral density as measured about the Lumbar spine is: ----- L1-L4(G/cm2): 1.081 T Score Values are as follows: ----- L1: -1.4 ----- L2: -1.1 ----- L3: -0.3 ----- L4: -0.7 ----- L1-L4: -0.8 Z Score Values are as follows: ----- L1: -0.3 ----- L2: -0.1 ----- L3: 0.8 ----- L4: 0.3 ----- L1-L4: 0.2 Bone mineral density has: Decreased -8.1% since study of: 11/29/2022 Bone mineral density about the R hip (g/cm2): 0.908 Bone mineral density about the L hip (g/cm2): 0.937 T Score values are as follows: -----R Neck: -1.4 -----L Neck: -0.7 -----R Total: -0.8 -----L Total: -0.6 Z Score values are as follows: -----R Neck: -0.3 -----L Neck: 0.4 -----R Total: 0.0 -----L Total: 0.2 Bone mineral density has: Decreased -16.2% since study of: 11/29/2022 FRAX%s: The graph provided illustrates a 7.7% chance for a major osteoporotic fx and a 0.6% chance fo r the hips probability for fx in 10 years time. IMPRESSION: Osteopenia (T Score between -2.5 and -1). There is slightly increased risk of fracture and the patient may be considered for treatment. Re-Screen 2-5 years. NOTE: T-SCORE=SD OF THE YOUNG ADULT MEAN. [facility], , 11/30/2024 12:35 PM
== END | disposition home or self-care (01) ==
LOC: RADBDWWP 09:51
PROVIDERS: ATTEND Internal Medicine Hematology & Oncology
DX: M85.89 Other specified disorders of bone density and structure, multiple sites (principal); M81.0 Age-related osteoporosis without current pathological fracture; C34.90 Malignant neoplasm of unspecified part of unspecified bronchus or lung; E78.5 Hyperlipidemia, unspecified; I10 Essential (primary) hypertension; D05.02 Lobular carcinoma in situ of left breast; E11.9 Type 2 diabetes mellitus without complications; Z71.3 Dietary counseling and surveillance; Z78.0 Asymptomatic menopausal state
CPT/HCPCS: 77080

== ENCOUNTER → 2025-03-14 | Outpatient (CLI) | payer BC ==
--- NOTE | 2025-03-26 12:23 | BMR ---
EXAM DATE: 03/14/2025 EXAM DESCRIPTION: MRI-Breast Bilat (W/WO Contrast) INDICATION: High-risk lesion in the left breast post lumpectomy and nipple left. Restaging COMPARISON: Prior breast MR dated 08/18/2024. Correlation is also made with the screening mammogram dated 11/21/2024 CONTRAST: 7.1 cc Gadavist contrast material. TECHNIQUE: Multi sequence multiplanar MR imaging of the breasts was obtained. Subsequently, after the uneventful intravenous administration of Gadavist contrast material, 6 dynamic sequences were then obtained. Post processing was performed utilizing a [employer] workstation. FINDINGS: The breasts are composed of scattered fibroglandular tissue. There is mild background parenchymal enhancement identified. No axillary or internal mammary lymphadenopathy. A few prominent lymph nodes with benign morphology in the left axilla are not significantly changed since prior examination. No focal skin thickening or nipple retraction. The bone marrow signal intensity is unremarkable. No adenopathy in the visualized mediastinum. T2 weighted images demonstrated a few subcentimeter T2 bright lesions in both breasts suggestive of fibrocystic changes. Previously described large seroma in the left breast at 12 o'clock position has been nearly resolved since prior examination. Post contrast images demonstrated no abnormal enhancement in either breast to suggest malignancy including left lumpectomy site. Mild peripheral progressive linear enhancement in the left breast at 11 to 12 o'clock position likely postsurgical in etiology. There is no abnormal signal or enhancement in the chest wall or subcutaneous tissue. IMPRESSION: 1. No MR evidence of malignancy in either breast including left lumpectomy site. Previously described seroma in the left breast at 12 o'clock position has been nearly resolved. 2. No axillary or internal mammary lymphadenopathy. Final assessment: BI-RADS category 2: Benign findings MTDD
== END | disposition home or self-care (01) ==
LOC: RADMRIMAIN 18:26
PROVIDERS: ATTEND Surgery
DX: Z86.000 Personal history of in-situ neoplasm of breast (principal); Z98.890 Other specified postprocedural states
CPT/HCPCS: 77049; A9585

== ENCOUNTER → 2025-03-15 | Outpatient (CLI) | payer BC ==
--- NOTE | 2025-03-15 12:56 | USB ---
Reason for Exam: Follow-up at short interval from prior study. Patient History: Menarche at age 11. First Full-Term at age 20. Hysterectomy at age 29. Postmenopausal. Hormonal Contraceptives for 1 year from age 21 until age 22. 10/23/2019, High risk Core Biopsy on the left side. 10/08/2019, Benign Core Biopsy on the left side. 12/29/2007, Benign Cyst Aspiration on the left side. 12/29/2007, Benign Cyst Aspiration on the left side. 05/06/2006, Benign Cyst Aspiration on the left side. 05/06/2006, Benign Cyst Aspiration on the left side. 05/06/2006, Benign Core Biopsy on the left side. Risk Values: Kemi 5 year model risk: 2.0%. NCI Lifetime model risk: 10.9%. Technique: Method: Targeted. Doppler: Color. Patient Position: Supine. Prior Study Comparison: 11/18/2022 Bilateral MG 3D diag mammo w/cad [facility], [facility]. 11/21/2023 Bilateral MG screening mammo w CAD, [facility]. 11/21/2024 Bilateral MG 3D screening mammo w/cad, [facility]. Findings: The area of palpable concern of the left breast, the periareolar of the left breast, the axilla of the left breast and the retroareolar of the left breast were scanned. Targeted ultrasound was performed. No solid or cystic masses are identified. A prominent but benign-appearing left axillary lymph node is noted. Overall Assessment: Benign, BI-RAD 2 Management: Screening Mammogram of both breasts in 9 months. Return to routine follow-up A clinical breast exam by your physician is recommended on an annual basis and results should be correlated with mammographic findings. This exam should not preclude additional follow-up of suspicious palpable abnormalities. Results were given to the patient verbally at the time of exam. [facility], , 03/15/2025 12:51 PM. Electronically signed and approved by: Jhony Ledbetter M.D.
== END | disposition home or self-care (01) ==
LOC: RADUSWWP 12:30
PROVIDERS: ATTEND Surgery
DX: N63.20 Unspecified lump in the left breast, unspecified quadrant (principal); Z78.0 Asymptomatic menopausal state